=== PATIENT | female | born 1970 | race Caucasian/White ===

== ENCOUNTER 2019-07-09 15:44 | Outpatient (RCR) | payer BC, OTHER, SELFPAY ==
[2019-04-30 18:05] LABS: INR 2.5; Prothrombin Time 26.9 Seconds (11.1-14.7)
[2019-05-29 10:07] LABS: Hemoglobin A1C 5.7 % (<5.7); INR 2.5; Prothrombin Time 26.1 Seconds (11.1-14.7)
[2019-05-29 10:09] LABS: Blood Urea Nitrogen 14 mg/dL (7-17); Calcium 10.1 mg/dL (8.4-10.2); Carbon Dioxide 28 mmol/L (22-30); Chloride 103 mmol/L (98-107); Cholesterol 159 mg/dL (0-200); Estimated Glomerular Filt Rate > 60; Glucose 95 mg/dL (65-105); HDL Direct 43 mg/dL; Potassium 4.4 mmol/L (3.4-5.0); Sodium 142 mmol/L (137-145); Triglycerides 183 mg/dL (<150)
[2019-05-29 10:19] LABS: LDL Cholesterol Direct 70 mg/dL
[2019-07-09 16:47] LABS: INR 2.2; Prothrombin Time 23.9 Seconds (11.1-14.7)
== END 2019-07-29 23:59 | disposition home or self-care (01) ==
LOC: ANHLAB 15:44
PROVIDERS: PCP Internal Medicine; Visit Provider Internal Medicine
DX: Z51.81 Encounter for therapeutic drug level monitoring (principal); I10 Essential (primary) hypertension; E55.9 Vitamin D deficiency, unspecified; E78.5 Hyperlipidemia, unspecified; R73.09 Other abnormal glucose; D68.51 Activated protein C resistance; Z79.899 Other long term (current) drug therapy; Z79.01 Long term (current) use of anticoagulants
CPT/HCPCS: 36415; 80048; 80061; 83036; 85610

== ENCOUNTER 2019-07-26 08:34 | Outpatient (CLI) | payer BC, SELFPAY ==
--- NOTE | ~2019-07-26 | XR_ITS ---
EXAMINATION: XR skull min 4V DATE: 07/26/2019 08:52 INDICATION: Cooper and bump at the top of the head. TECHNIQUE: 4 views of the skull were obtained. COMPARISON: None. FINDINGS: Bone alignment is normal. No fracture. There is no abnormal skull mass. IMPRESSION: 1. Normal skull. Reviewed, dictated and finalized at location A. GY CONSERVATION DIRECTOR IMPRESSION: 1. Normal skull.
== END 2019-07-26 08:35 | disposition home or self-care (01) ==
LOC: ANHIMG 08:38
PROVIDERS: PCP Internal Medicine; Visit Provider Internal Medicine
DX: L90.5 Scar conditions and fibrosis of skin (principal)
CPT/HCPCS: 70260

== ENCOUNTER 2019-10-17 17:06 | Outpatient (RCR) | payer BC, SELFPAY ==
[2019-08-16 17:31] LABS: INR 2.5; Prothrombin Time 26.7 Seconds (11.1-14.7)
[2019-09-17 18:00] LABS: INR 2.7; Prothrombin Time 27.9 Seconds (11.1-14.7)
[2019-09-17 18:05] LABS: Alanine Aminotransferase 41 U/L (4-35); Albumin Level 4.8 g/dL (3.5-5.1); Alkaline Phosphatase 82 U/L (38-126); Aspartate Amino Transferase 35 U/L (14-36); Bilirubin,Total 0.4 mg/dL (0.2-1.3)
[2019-09-17 18:41] LABS: Vitamin D 25 Hydroxy 65.8 ng/mL
[2019-10-17 17:35] LABS: INR 3.3; Prothrombin Time 32.7 Seconds (11.1-14.7)
== END 2019-11-14 23:59 | disposition home or self-care (01) ==
LOC: ANHLAB 17:06
PROVIDERS: PCP Internal Medicine; Visit Provider Internal Medicine
DX: Z51.81 Encounter for therapeutic drug level monitoring (principal); D68.51 Activated protein C resistance; E55.9 Vitamin D deficiency, unspecified; Z79.01 Long term (current) use of anticoagulants; Z79.899 Other long term (current) drug therapy
CPT/HCPCS: 36415; 80076; 82306; 84443; 85610

== ENCOUNTER 2020-01-31 15:04 | Outpatient (RCR) | payer BC, SELFPAY ==
[2019-11-21 17:17] LABS: INR 2.2; Prothrombin Time 23.8 Seconds (11.1-14.7)
[2019-12-21 11:17] LABS: INR 3.3; Prothrombin Time 33.3 Seconds (11.1-14.7)
[2019-12-27 18:13] LABS: INR 2.9; Prothrombin Time 29.6 Seconds (11.1-14.7)
[2020-01-10 17:58] LABS: INR 2.9
[2020-01-31 15:37] LABS: INR 2.5; Prothrombin Time 26.9 Seconds (11.1-14.7)
== END 2020-02-19 23:59 | disposition home or self-care (01) ==
LOC: ANHLAB 15:04
PROVIDERS: PCP Internal Medicine; Visit Provider Internal Medicine
DX: Z51.81 Encounter for therapeutic drug level monitoring (principal); D68.51 Activated protein C resistance; Z79.01 Long term (current) use of anticoagulants
CPT/HCPCS: 36415; 85610

== ENCOUNTER → 2020-03-13 07:40 | Outpatient (CLI) | payer BC, SELFPAY ==
--- NOTE | ~2020-03-13 | US_ITS ---
US abdomen limited DATE: 03/13/2020 08:03 INDICATION: Infarction of spleen. Intermittent sharp left abdominal pain for one month TECHNIQUE: Real-time imaging of the spleen COMPARISON: 04/26/2019 CT abdomen pelvis FINDINGS: No splenic mass lesion is evident. Splenic size is within normal range. IMPRESSION: No significant sonographic abnormality of the spleen Reviewed, dictated and finalized at Location A. Reviewed, dictated and finalized at location B.
== END ==
PROVIDERS: PCP Internal Medicine; Visit Provider Internal Medicine
DX: D73.5 Infarction of spleen (principal)
CPT/HCPCS: 76705

== ENCOUNTER 2020-05-07 08:11 | Outpatient (CLI) | payer BC, SELFPAY ==
--- NOTE | ~2020-05-07 | XR_ITS ---
XR thoracic spine 2V 05/07/2020 08:47 Indication: Back pain Procedure: 3 views thoracic spine Comparison: No prior studies for comparison. Findings: Normal thoracic alignment. Vertebral body heights are maintained. No fracture or traumatic malalignment. No paraspinal soft tissue abnormality. Pedicles intact. There are cholecystectomy clips . No acute osseous abnormality. Impression: 1: No significant abnormality of the thoracic spine. Reviewed, dictated and finalized at location A. CARE MUSIC THERAPIST Impression: 1: No significant abnormality of the thoracic spine.
--- NOTE | ~2020-05-07 | XR_ITS ---
XR cervical spine min 6V 05/07/2020 08:47 Indication: Cervicalgia. Neck pain. No recent trauma. Procedure: 6 view cervical spine including flexion/extension views Comparison: No prior studies for comparison. Findings: Vertebral body and disc heights are preserved. No significant alteration of alignment with flexion/extension. No prevertebral soft tissue swelling. No fracture, subluxation or dislocation. Ja g apices are unremarkable. Odontoid process within normal limits. Impression: 1: No significant abnormality of the cervical spine. Reviewed, dictated and finalized at location A. LOPMENTAL SERVICES WORKER Impression: 1: No significant abnormality of the cervical spine.
== END 2020-05-07 08:12 | disposition home or self-care (01) ==
LOC: ANHIMG 08:19
PROVIDERS: PCP Internal Medicine; Visit Provider Internal Medicine
DX: M54.2 Cervicalgia (principal)
CPT/HCPCS: 72052; 72070

== ENCOUNTER 2020-05-15 16:29 | Outpatient (RCR) | payer BC, SELFPAY ==
[2020-02-21 17:37] LABS: Basophils Percent Auto 0.5 % (0.2-1.2); Eosinophils Absolute Auto 0.2 K/mm3 (0-0.3); Eosinophils Percent Auto 2.9 % (0-4.4); Hemoglobin 13.3 g/dL (12.0-15.0); Immature Granulocyte Absolute 0.01 K/mm3 (0.00-0.031); Immature Granulocyte Percent A 0.2 % (0-0.5); Lymphocytes Absolute Auto 2.49 K/mm3 (0.9-3.2); Lymphocytes Percent Auto 42.3 % (18.3-44.2); Mean Corpuscular HGB Conc 32.4 g/dl (32-36); Mean Corpuscular Hemoglobin 27.6 pg (26-34); Mean Corpuscular Volume 85.1 fl (80-100); Mean Platelet Volume 9.8 fl (7.4-10.4); Monocytes Absolute Auto 0.6 K/mm3 (0.1-0.6); Monocytes Percent Auto 9.9 % (2.6-8.5); Neutrophils Absolute Auto 2.6 K/mm3 (1.3-6.7); Neutrophils Percent Auto 44.2 % (45.5-73.1); Platelet Count Result 266 k/mm3 (150-375); Red Blood Count 4.82 M/mm3 (4.2-5.4); Red Cell Distribution Width 13.5 % (11.5-14.5); White Blood Count 5.9 K/mm3 (4.5-10.0)
[2020-02-21 17:39] LABS: Add Urine Microscopic? NO; Appearance Urine Clear (Clear); Bilirubin Urine Negative (Negative); Blood Urine Negative (Negative); Color Urine Yellow (Yellow); Glucose Urine UA Negative (Negative); Ketones Urine Negative (Negative); Leukocyte Esterase Ur Negative LEU/UL (NEGATIVE); Nitrate Urine Negative (Negative); Protein Urine Negative (Negative); Specific Grav Ur 1.019 (1.001-1.035); Urobilinogen Urine Negative mg/dL (<2.0)
[2020-02-21 17:46] LABS: INR 2.4
[2020-02-21 17:48] LABS: Hemoglobin A1C 5.3 % (<5.7)
[2020-02-21 18:32] LABS: Alanine Aminotransferase 36 U/L (4-35); Albumin Level 4.7 g/dL (3.5-5.1); Alkaline Phosphatase 70 U/L (38-126); Anion Gap 10 mmol/L (8-16); Aspartate Amino Transferase 36 U/L (14-36); Bilirubin,Total 0.5 mg/dL (0.2-1.3); Blood Urea Nitrogen 15 mg/dL (7-17); Calcium 9.7 mg/dL (8.4-10.2); Carbon Dioxide 25 mmol/L (22-30); Chloride 105 mmol/L (98-107); Cholesterol 136 mg/dL (0-200); Estimated Glomerular Filt Rate > 60; Glucose 83 mg/dL (65-105); HDL Direct 45 mg/dL; Potassium 4.2 mmol/L (3.4-5.0); Sodium 140 mmol/L (137-145); Triglycerides 177 mg/dL (<150)
[2020-02-21 18:43] LABS: LDL Cholesterol Direct 53 mg/dL
[2020-02-21 18:48] LABS: Vitamin D 25 Hydroxy 86.4 ng/mL
[2020-03-11 17:44] LABS: INR 2.5; Prothrombin Time 26.3 Seconds (11.1-14.7)
[2020-04-10 17:20] LABS: INR 2.1; Prothrombin Time 22.8 Seconds (11.1-14.7)
[2020-05-15 17:23] LABS: INR 2.2; Prothrombin Time 25.2 Seconds (11.1-14.7)
== END 2020-05-21 23:59 | disposition home or self-care (01) ==
LOC: ANHLAB 16:29
PROVIDERS: PCP Internal Medicine; Visit Provider Internal Medicine
DX: Z51.81 Encounter for therapeutic drug level monitoring (principal); D68.51 Activated protein C resistance; Z79.01 Long term (current) use of anticoagulants
CPT/HCPCS: 36415; 80053; 80061; 81003; 82306; 83036; 84443; 85025; 85610

== ENCOUNTER 2020-06-12 08:29 | Outpatient (CLI) | payer BC, SELFPAY ==
--- NOTE | ~2020-06-12 | MM_ITS ---
EXAMINATION: MM screening [facility] BI w gulshan HISTORY: Screening mammogram TECHNIQUE: Craniocaudal and mediolateral oblique 3-D tomosynthesis images were obtained and synthetic 2-D images were generated. CAD analysis was submitted and interpreted. COMPARISON: 06/11/2019, 06/01/2018, 05/31/2017 BREAST PARENCHYMAL COMPOSITION: There are scattered areas of fibroglandular density. FINDINGS: There is no evidence of suspicious mass, calcification, or architectural distortion to sugg est malignancy in either breast. There has been no suspicious interval change. IMPRESSION: 1. No mammographic evidence of malignancy. 2. Recommend routine screening mammography in one year. BI-RADS Category 1: Negative Reviewed, dictated and finalized at location A. EMIOLOGY INTERNSHIP
== END 2020-06-12 08:30 | disposition home or self-care (01) ==
PROVIDERS: PCP Internal Medicine; Visit Provider Internal Medicine
DX: Z12.31 Encounter for screening mammogram for malignant neoplasm of breast (principal)
CPT/HCPCS: 77063; 77067

== ENCOUNTER 2020-08-19 17:04 | Outpatient (RCR) | payer BC, SELFPAY ==
[2020-06-02 17:54] LABS: INR 2.1; Prothrombin Time 24.2 Seconds (11.1-14.7)
[2020-06-09 15:41] LABS: INR 2.9; Prothrombin Time 30.7 Seconds (11.1-14.7)
[2020-06-19 17:05] LABS: INR 2.4; Prothrombin Time 26.7 Seconds (11.1-14.7)
[2020-07-02 17:16] LABS: INR 2.3; Prothrombin Time 26.1 Seconds (11.1-14.7)
[2020-07-14 17:40] LABS: Basophils Percent Auto 0.4 % (0.2-1.2); Eosinophils Absolute Auto 0.1 K/mm3 (0-0.3); Eosinophils Percent Auto 1.7 % (0-4.4); Hematocrit 42.8 % (37.0-47.0); Hemoglobin 13.8 g/dL (12.0-15.0); Immature Granulocyte Absolute 0.02 K/mm3 (0.00-0.031); Immature Granulocyte Percent A 0.3 % (0-0.5); Lymphocytes Absolute Auto 2.71 K/mm3 (0.9-3.2); Lymphocytes Percent Auto 37.4 % (18.3-44.2); Mean Corpuscular HGB Conc 32.2 g/dl (32-36); Mean Corpuscular Hemoglobin 27.8 pg (26-34); Mean Corpuscular Volume 86.1 fl (80-100); Mean Platelet Volume 9.5 fl (7.4-10.4); Monocytes Absolute Auto 0.4 K/mm3 (0.1-0.6); Monocytes Percent Auto 5.5 % (2.6-8.5); Neutrophils Percent Auto 54.7 % (45.5-73.1); Platelet Count Result 255 k/mm3 (150-375); Red Blood Count 4.97 M/mm3 (4.2-5.4); White Blood Count 7.3 K/mm3 (4.5-10.0)
[2020-07-14 17:51] LABS: INR 2.3; Prothrombin Time 25.5 Seconds (11.1-14.7)
[2020-07-14 17:55] LABS: Alanine Aminotransferase 35 U/L (4-35); Albumin Level 4.8 g/dL (3.5-5.1); Alkaline Phosphatase 74 U/L (38-126); Anion Gap 7 mmol/L (8-16); Aspartate Amino Transferase 32 U/L (14-36); Bilirubin,Total 0.4 mg/dL (0.2-1.3); Blood Urea Nitrogen 15 mg/dL (7-17); Carbon Dioxide 31 mmol/L (22-30); Chloride 104 mmol/L (98-107); Cholesterol 156 mg/dL (0-200); Estimated Glomerular Filt Rate > 60; Glucose 91 mg/dL (65-105); HDL Direct 46 mg/dL; Potassium 4.3 mmol/L (3.4-5.0); Sodium 142 mmol/L (137-145); Triglycerides 210 mg/dL (<150)
[2020-07-14 18:06] LABS: LDL Cholesterol Direct 60 mg/dL
[2020-07-14 18:21] LABS: Hemoglobin A1C 5.4 % (<5.7)
[2020-07-14 18:34] LABS: Add Urine Microscopic? NO; Appearance Urine Clear (Clear); Bilirubin Urine Negative (Negative); Blood Urine Negative (Negative); Color Urine Yellow (Yellow); Glucose Urine UA Negative (Negative); Ketones Urine Negative (Negative); Leukocyte Esterase Ur Negative LEU/UL (NEGATIVE); Nitrate Urine Negative (Negative); Protein Urine Negative (Negative); Specific Grav Ur 1.016 (1.001-1.035); Urobilinogen Urine Negative mg/dL (<2.0)
[2020-07-18 05:08] LABS: Insulin Level Total 11.6 uIU/mL (<=19.6)
[2020-08-12 17:28] LABS: INR 2.2; Prothrombin Time 24.8 Seconds (11.1-14.7)
[2020-08-19 17:36] LABS: INR 2.7; Prothrombin Time 29.1 Seconds (11.1-14.7)
== END 2020-08-31 23:59 | disposition home or self-care (01) ==
LOC: ANHLAB 17:04
PROVIDERS: PCP Internal Medicine; Visit Provider Internal Medicine
DX: Z51.81 Encounter for therapeutic drug level monitoring (principal); D68.51 Activated protein C resistance; I10 Essential (primary) hypertension; Z79.01 Long term (current) use of anticoagulants; Z79.899 Other long term (current) drug therapy
CPT/HCPCS: 36415; 80053; 80061; 81003; 83036; 83525; 84443; 85025; 85610

== ENCOUNTER 2020-11-21 16:10 | Outpatient (RCR) | payer BC, SELFPAY ==
[2020-09-02 17:09] LABS: INR 3.2
[2020-09-16 17:50] LABS: INR 2.5; Prothrombin Time 27.5 Seconds (11.1-14.7)
[2020-10-14 17:43] LABS: INR 2.6; Prothrombin Time 28.5 Seconds (11.1-14.7)
[2020-11-11 18:02] LABS: Add Urine Microscopic? YES; Appearance Urine Clear (Clear); Bilirubin Urine Negative (Negative); Blood Urine 1+ (Negative); Color Urine Straw (Yellow); Glucose Urine UA Negative (Negative); Ketones Urine Negative (Negative); Leukocyte Esterase Ur Negative LEU/UL (Negative); Mucus Urine Rare /lpf; Nitrate Urine Negative (Negative); Protein Urine Negative (Negative); RBC Urine 0-2 /hpf (0-2); Urobilinogen Urine Negative mg/dL (<2.0)
[2020-11-11 18:21] LABS: INR 2.9
[2020-11-21 16:40] LABS: INR 2.6; Prothrombin Time 28.3 Seconds (11.1-14.7)
== END 2020-12-03 23:59 | disposition home or self-care (01) ==
LOC: ANHLAB 16:10
PROVIDERS: PCP Internal Medicine; Visit Provider Internal Medicine
DX: Z51.81 Encounter for therapeutic drug level monitoring (principal); D68.51 Activated protein C resistance; Z79.01 Long term (current) use of anticoagulants
CPT/HCPCS: 36415; 81001; 85610

== ENCOUNTER 2021-02-11 16:55 | Outpatient (CLI) | payer BC, SELFPAY ==
[2021-02-11 17:28] LABS: Basophils Percent Auto 0.5 % (0.2-1.2); Eosinophils Absolute Auto 0.1 K/mm3 (0-0.3); Eosinophils Percent Auto 1.4 % (0-4.4); Hematocrit 42.2 % (37.0-47.0); Hemoglobin 13.6 g/dL (12.0-15.0); Immature Granulocyte Absolute 0.02 K/mm3 (0.00-0.031); Immature Granulocyte Percent A 0.3 % (0-0.5); Lymphocytes Absolute Auto 2.66 K/mm3 (0.9-3.2); Lymphocytes Percent Auto 41.2 % (18.3-44.2); Mean Corpuscular HGB Conc 32.2 g/dl (32-36); Mean Corpuscular Hemoglobin 27.6 pg (26-34); Mean Corpuscular Volume 85.8 fl (80-100); Mean Platelet Volume 9.6 fl (7.4-10.4); Monocytes Absolute Auto 0.5 K/mm3 (0.1-0.6); Monocytes Percent Auto 7.3 % (2.6-8.5); Neutrophils Absolute Auto 3.2 K/mm3 (1.3-6.7); Neutrophils Percent Auto 49.3 % (45.5-73.1); Platelet Count Result 262 k/mm3 (150-375); Red Blood Count 4.92 M/mm3 (4.2-5.4); Red Cell Distribution Width 12.9 % (11.5-14.5); White Blood Count 6.5 K/mm3 (4.5-10.0)
[2021-02-11 17:40] LABS: Alanine Aminotransferase 25 U/L (4-35); Albumin Level 4.7 g/dL (3.5-5.1); Alkaline Phosphatase 63 U/L (38-126); Anion Gap 9 mmol/L (8-16); Aspartate Amino Transferase 24 U/L (14-36); Bilirubin,Total 0.5 mg/dL (0.2-1.3); Blood Urea Nitrogen 15 mg/dL (7-17); Calcium 9.8 mg/dL (8.4-10.2); Carbon Dioxide 28 mmol/L (22-30); Chloride 104 mmol/L (98-107); Cholesterol 130 mg/dL (0-200); Estimated Glomerular Filt Rate > 60; Glucose 87 mg/dL (65-110); HDL Direct 34 mg/dL; Potassium 4.2 mmol/L (3.4-5.0); Sodium 141 mmol/L (137-145); Triglycerides 269 mg/dL (<150)
[2021-02-11 17:52] LABS: LDL Cholesterol Direct 40 mg/dL
[2021-02-11 19:51] LABS: Hemoglobin A1C 5.5 % (<5.7)
[2021-02-14 04:33] LABS: Insulin Level Total 12.9 uIU/mL (<=19.6)
[2021-02-14 22:55] LABS: Vitamin D 1,25 (OH)2 Total 62 pg/mL (18-72); Vitamin D2 1,25 (OH)2 <8 pg/mL; Vitamin D3 1,25 (OH)2 62 pg/mL
== END 2021-02-11 16:56 | disposition home or self-care (01) ==
LOC: ANHLAB 16:57
PROVIDERS: PCP Internal Medicine; Visit Provider Internal Medicine
DX: E55.9 Vitamin D deficiency, unspecified (principal); I10 Essential (primary) hypertension; R79.89 Other specified abnormal findings of blood chemistry; E78.2 Mixed hyperlipidemia; Z79.899 Other long term (current) drug therapy
CPT/HCPCS: 36415; 80053; 80061; 82652; 83036; 83090; 83525; 85025

== ENCOUNTER 2021-02-25 08:20 | Outpatient (RCR) | payer BC, SELFPAY ==
[2020-12-04 17:45] LABS: INR 3.1; Prothrombin Time 32.5 Seconds (11.1-14.7)
[2020-12-16 18:08] LABS: INR 2.5; Prothrombin Time 26.7 Seconds (11.1-14.7)
[2021-01-13 17:34] LABS: INR 2.6; Prothrombin Time 26.9 Seconds (11.1-14.7)
[2021-02-11 17:40] LABS: INR 3.3; Prothrombin Time 32.2 Seconds (11.1-14.7)
[2021-02-25 08:53] LABS: INR 2.3; Prothrombin Time 24.6 Seconds (11.1-14.7)
== END 2021-03-04 23:59 | disposition home or self-care (01) ==
LOC: ANHLAB 08:20
PROVIDERS: PCP Internal Medicine; Visit Provider Internal Medicine
DX: Z51.81 Encounter for therapeutic drug level monitoring (principal); D68.51 Activated protein C resistance; Z79.01 Long term (current) use of anticoagulants
CPT/HCPCS: 36415; 85610

== ENCOUNTER 2021-05-28 15:29 | Outpatient (RCR) | payer BC, SELFPAY ==
[2021-03-05 18:15] LABS: INR 2.1; Prothrombin Time 22.7 Seconds (11.1-14.7)
[2021-03-16 18:05] LABS: INR 3.2; Prothrombin Time 32.1 Seconds (11.1-14.7)
[2021-03-31 17:30] LABS: INR 2.6; Prothrombin Time 27.3 Seconds (11.1-14.7)
[2021-05-04 11:40] LABS: INR 2.4; Prothrombin Time 25.9 Seconds (11.1-14.7)
[2021-05-28 15:56] LABS: INR 3.4; Prothrombin Time 33.1 Seconds (11.1-14.7)
== END 2021-06-03 23:59 | disposition home or self-care (01) ==
LOC: ANHLAB 15:29
PROVIDERS: PCP Internal Medicine; Visit Provider Internal Medicine
DX: Z51.81 Encounter for therapeutic drug level monitoring (principal); I74.9 Embolism and thrombosis of unspecified artery; D68.51 Activated protein C resistance; Z79.01 Long term (current) use of anticoagulants
CPT/HCPCS: 36415; 85610

== ENCOUNTER 2021-06-02 08:57 | Outpatient (CLI) | payer BC, SELFPAY ==
--- NOTE | ~2021-06-02 | US_ITS ---
EXAMINATION: US carotid duplex BI DATE: 06/02/2021 09:55 INDICATION: Skin anesthesia. Numbness to right side of face. TECHNIQUE: Grayscale, color Doppler, and pulsed Doppler images of the cervical carotid arteries were obtained. The degree of vessel stenosis is placed in one of the following categories: normal, <50%, 5 0-69%, >=70% but less than near-occlusion, near-occlusion, or total occlusion. Note that percent sten osis relative to normal distal artery lumen diameter is indirectly measured from velocity measurement s as described by Emil, et al. Radiology 2003; [id number]. Notes: Normal: Peak systolic velocity <125 centimeters/sec and no plaque <50%. Peak systolic velocity <125 ( EDV <40; ICA/CCA PSV ratio <2.0; used these factors only a tandem lesions or low cardiac output or co ntralateral disease) 50-69 %: PSV 125-230 (EDV 40-100; ratio 2-4) >= 70% but less than near occlusion: PSV greater than 230 (EDV > 100; ratio> 4.0) Near Occlusion: PSV that is variable; markedly narrowed lumen Occlusion: Absent flow on color/spectral Doppler and no lumen on melendez scale. COMPARISON: None. FINDINGS: RIGHT: The right common carotid artery (CCA) peak systolic velocity (PSV) is 103 cm/s. The right internal ca rotid artery (ICA) PSV is 93 cm/s. The right ICA end-diastolic velocity (EDV) is 36 cm/s. The right I CA/CCA PSV ratio is 0.9. The external carotid artery (ECA) PSV is 87 cm/s. There is antegrade flow in the right vertebral artery. LEFT: The left CCA PSV is 78 cm/s. The left ICA PSV is 107 cm/s. The left ICA EDV is 56 cm/s. The left ICA/ CCA PSV ratio is 1.4. The ECA PSV is 100 cm/s. There is antegrade flow in the left vertebral artery. IMPRESSION: 1. Less than 50% stenosis in the right internal carotid artery by sonographic criteria. 2. Less than 50% stenosis in the left internal carotid artery by sonographic criteria. Reviewed, dictated and finalized at location A. UTIVE SEARCH CONSULTANT IMPRESSION: 1. Less than 50% stenosis in the right internal carotid artery by sonographic c demetris. 2. Less than 50% stenosis in the left internal carotid artery by sonographic cr sofia.
--- NOTE | ~2021-06-02 | CT_ITS ---
EXAMINATION: CT brain wo/w con DATE: 06/02/2021 10:05 INDICATION: Right facial numbness for 3 days TECHNIQUE: Computed tomography (CT) of the head was performed without and subsequently with 100 cc Om nipaque 350 intravenous contrast. The mA was adjusted according to patient size. Iterative reconstruc tion technique was employed. Exam dose: 1059.33 mGy-cm total exam DLP. COMPARISON: 10/01/2014 MR brain 02/15/2012 MR brain FINDINGS: No intracranial mass lesion or hemorrhage or cerebrovascular accident. No midline shift or mass effect. Normal ventricular size. No subdural or epidural hematoma. Included paranasal sinuses and mastoid air cells are normally developed and aerated. No fracture or b one destruction of the cranial vault. IMPRESSION: Negative Reviewed, dictated and finalized at Location A. Reviewed, dictated and finalized at location B. POSTER IMPRESSION: Negative
[2021-06-02 09:34] LABS: Basophils Percent Auto 0.5 % (0.2-1.2); Eosinophils Absolute Auto 0.1 K/mm3 (0-0.3); Eosinophils Percent Auto 1.6 % (0-4.4); Hematocrit 46.6 % (37.0-47.0); Immature Granulocyte Absolute 0.02 K/mm3 (0.00-0.031); Immature Granulocyte Percent A 0.3 % (0-0.5); Lymphocytes Absolute Auto 2.04 K/mm3 (0.9-3.2); Lymphocytes Percent Auto 35.5 % (18.3-44.2); Mean Corpuscular HGB Conc 32.2 g/dl (32-36); Mean Corpuscular Hemoglobin 27.9 pg (26-34); Mean Corpuscular Volume 86.8 fl (80-100); Mean Platelet Volume 9.8 fl (7.4-10.4); Monocytes Absolute Auto 0.4 K/mm3 (0.1-0.6); Monocytes Percent Auto 6.1 % (2.6-8.5); Neutrophils Absolute Auto 3.2 K/mm3 (1.3-6.7); Platelet Count Result 273 k/mm3 (150-375); Red Blood Count 5.37 M/mm3 (4.2-5.4); Red Cell Distribution Width 12.9 % (11.5-14.5); White Blood Count 5.8 K/mm3 (4.5-10.0)
[2021-06-02 09:58] LABS: Anion Gap 10 mmol/L (8-16); Blood Urea Nitrogen 15 mg/dL (7-17); CRP < 0.5 mg/dL (<1.0); Calcium 10.4 mg/dL (8.4-10.2); Carbon Dioxide 29 mmol/L (22-30); Chloride 99 mmol/L (98-107); Estimated Glomerular Filt Rate > 60; Glucose 102 mg/dL (65-110); Potassium 4.5 mmol/L (3.4-5.0); Sodium 138 mmol/L (137-145)
[2021-06-02 09:59] LABS: Estimated Glomerular Filt Rate > 60
[2021-06-02 10:48] LABS: INR 2.7; Prothrombin Time 28.2 Seconds (11.1-14.7)
[2021-06-02 11:04] LABS: Erythrocyte Sedimentation Rate 9 mm/hr (0-20)
== END 2021-06-02 08:58 | disposition home or self-care (01) ==
PROVIDERS: PCP Internal Medicine; Visit Provider Internal Medicine
DX: D68.51 Activated protein C resistance (principal); R20.0 Anesthesia of skin; Z79.01 Long term (current) use of anticoagulants; I65.23 Occlusion and stenosis of bilateral carotid arteries
CPT/HCPCS: 36415; 70470; 80048; 85025; 85610; 85652; 86140; 93880; Q9967

== ENCOUNTER 2021-06-10 06:45 | Outpatient (CLI) | payer BC, SELFPAY ==
--- NOTE | ~2021-06-10 | MR_ITS ---
EXAMINATION: MR brain/brain stem wo/w con DATE: 06/10/2021 07:51 INDICATION: Anesthesia skin. TECHNIQUE: Magnetic resonance imaging (MRI) of the brain and brainstem was performed without and with 15 mL MultiHance intravenous contrast. Sequences included sagittal and axial T1-weighted FSE, axial diffusion-weighted FS EPI, axial T2*-weighted GRE, axial T2-weighted FLAIR Propeller, and axial T2-we ighted Propeller. Postcontrast sequences included axial, sagittal, and coronal T1-weighted FSE. Appar ent diffusion coefficient (ADC) maps were created. COMPARISON: Brain MRI 10/01/2014, head CT 06/02/2021 FINDINGS: There are scattered areas of nonspecific increased T2-weighted signal intensity in the cere bral white matter, which is within normal limits for the patient's age. There is no intracranial hemo rrhage, acute infarction, or abnormal intracranial mass lesion. The ventricles are normal in size. Th e paranasal sinuses are clear. The orbits are normal. The mastoid air cells are normal. IMPRESSION: 1. Normal aging brain. Reviewed, dictated and finalized at location B. DECORATOR IMPRESSION: 1. Normal aging brain.
== END 2021-06-10 06:46 | disposition home or self-care (01) ==
LOC: ANHIMG 06:46
PROVIDERS: PCP Internal Medicine; Visit Provider Internal Medicine
DX: R20.0 Anesthesia of skin (principal); D68.51 Activated protein C resistance; Z79.01 Long term (current) use of anticoagulants
CPT/HCPCS: 70553; A9577

== ENCOUNTER 2021-08-04 16:42 | Outpatient (CLI) | payer BC, SELFPAY ==
--- NOTE | ~2021-08-04 | MM_ITS ---
EXAMINATION: MM screening [facility] BI w gulshan HISTORY: Screening mammogram TECHNIQUE: Craniocaudal and mediolateral oblique 3-D tomosynthesis images were obtained and synthetic 2-D images were generated. CAD analysis was submitted and interpreted. COMPARISON: 06/12/2020, 06/11/2019, 06/01/2018 bilateral screening mammogram examinations BREAST PARENCHYMAL COMPOSITION: There are scattered areas of fibroglandular density. FINDINGS: There is no evidence of suspicious mass, calcification, or architectural distortion to sugg est malignancy in either breast. There has been no suspicious interval change. IMPRESSION: 1. No mammographic evidence of malignancy. 2. Recommend routine screening mammography in one year. BI-RADS Category 1: Negative Reviewed, dictated and finalized at location A. RVENTIONAL SALE CONSULTANT
== END 2021-08-04 16:43 | disposition home or self-care (01) ==
LOC: ANHIMG 16:46
PROVIDERS: PCP Internal Medicine; Visit Provider Internal Medicine
DX: Z12.31 Encounter for screening mammogram for malignant neoplasm of breast (principal)
CPT/HCPCS: 77063; 77067

== ENCOUNTER 2021-09-17 12:57 | Emergency (ER) | payer BC, SELFPAY ==
[2021-09-17 13:10] VITALS: BP 146/80; PULSE 100; RESP 18; TEMP 36.5; O2SAT 99
--- NOTE | 2021-09-17 14:32 | ED.SKABFB ---
HPI - Skin/Abscess/Foreign Bdy General Chief complaint: Skin/Abscess/Foreign Body <Seema Vasquez PA-C - Last Filed: 09/17/21 17:29> Stated complaint: philip/skin bumps <Seema Vasquez PA-C - Last Filed: 09/17/21 17:29> Time Seen by Provider: 09/17/21 13:15 <Seema Vasquez PA-C - Last Filed: 09/17/21 17:29> History of Present Illness HPI narrative: Patient is a 50-year-old female with a history of pulmonary embolism for which she takes warfarin, who presents for 3 days of a rash around her left scalp area. The rash is nonpainful and not itchy, and has not increased in size to her knowledge. Denies new soaps, detergents, bug bites, or medications. She states she was camping last week in the [facility] but denies known tick exposure. Additionally, her dog is being treated for a fungal infection, and she recently clipped his hair and did not wash her hands afterwards. Additionally reporting discomfort behind her left ear. She tried putting coconut oil in her left ear for the pain without relief. She denies any rash on her eye, nose, blurry vision, nausea, vomiting. <Seema Vasquez PA-C - Last Filed: 09/17/21 17:29> Related Data Home medications: Home Medications Medication Instructions Recorded Confirmed cholecalciferol (vitamin D3) 125 5,000 unit PO DAILY 07/09/19 06/03/21 mcg (5,000 unit) capsule multivitamin 1 tablet PO DAILY 07/17/20 06/03/21 fish oil-dha-epa 1,200 mg-144 cap PO TID cap 03/11/21 06/03/21 mg-216 mg capsule <MARILEE Dawn Last Filed: 09/17/21 17:29> Allergies/Adverse reactions: Allergies Allergy/AdvReac Type Severity Reaction Status Date / Time papaya Allergy Severe RASH Verified 09/17/21 13:12 Sulfa (Sulfonamide Allergy Unknown Unknown Verified 09/17/21 13:12 Antibiotics) sulfanilamide Allergy Unknown Unknown Verified 09/17/21 13:12 Prieto Allergy Severe RASH Uncoded 09/17/21 13:12 <Seema Vasquez PA-C - Last Filed: 09/17/21 17:29> Review of Systems Review of Systems: Gen: Denies fevers or chills Eyes: Denies eye pain or visual change ENT: Reports pain behind left ear. Denies congestion Respiratory: Denies shortness of breath or cough CV: Denies chest pain or palpitations GI: Denies abdominal pain nausea, emesis or diarrhea denies burning, urgency, frequency or hematuria Musculoskeletal: Denies back pain or muscle pain Neuro: Denies numbness, tingling, weakness or focal weakness Skin: Reports rash Except as documented, all other systems reviewed and negative <Seema Vasquez PA-C - Last Filed: 09/17/21 17:29> All systems reviewed & are unremarkable except as noted in HPI and below <Seema Vasquez PA-C - Last Filed: 09/17/21 17:29> [facility] Past Medical History Medical History: Medical History Abnormal finding of blood chemistry Benign essential hypertension BMI 30.0-30.9,adult BMI 33.0-33.9,adult BMI 34.0-34.9,adult Cellulitis Encounter for preventive health examination Encounter for routine adult health examination without abnormal findings Follow up GERD (gastroesophageal reflux disease) Head disfigurement Hormone replacement therapy (HRT) Hyperlipidemia FDC current use of anticoagulant Neck Pain On nurse intern drug therapy Splenic infarct Umbilical discharge Vitamin D deficiency <Seema Vasquez PA-C - Last Filed: 09/17/21 17:29> Family History Family History: Family History Father Hypertension Family history of macular degeneration Sibling Family history of elevated blood lipids Mother Family history of diabetes mellitus in first degree relative Diabetes mellitus <Seema Vasquez PA-C - Last Filed: 09/17/21 17:29> Social History Social History: Social History A
== END 2021-09-17 15:06 | disposition home or self-care (01) ==
PROVIDERS: Emergency Provider Emergency Medicine; PCP Internal Medicine
DX: L30.9 Dermatitis, unspecified (principal); I10 Essential (primary) hypertension; K21.9 Gastro-esophageal reflux disease without esophagitis; E78.5 Hyperlipidemia, unspecified; E55.9 Vitamin D deficiency, unspecified; Z86.711 Personal history of pulmonary embolism; Z79.01 Long term (current) use of anticoagulants
CPT/HCPCS: 99283

== ENCOUNTER 2021-09-17 15:13 | Outpatient (RCR) | payer BC, SELFPAY ==
[2021-08-03 15:33] LABS: INR 2.6; Prothrombin Time 26.8 Seconds (11.1-14.7)
[2021-08-03 15:37] LABS: Alanine Aminotransferase 22 U/L (4-35); Albumin Level 4.7 g/dL (3.5-5.1); Alkaline Phosphatase 79 U/L (38-126); Aspartate Amino Transferase 28 U/L (14-36); Bilirubin,Total 0.5 mg/dL (0.2-1.3); Cholesterol 245 mg/dL (0-200); HDL Direct 40 mg/dL; Triglycerides 276 mg/dL (<150)
[2021-08-03 15:47] LABS: LDL Cholesterol Direct 102 mg/dL
[2021-09-17 16:13] LABS: Prothrombin Time 22.3 Seconds (11.1-14.7)
== END 2021-11-01 23:59 | disposition home or self-care (01) ==
LOC: ANHLAB 15:13
PROVIDERS: PCP Internal Medicine; Visit Provider Internal Medicine
DX: I74.9 Embolism and thrombosis of unspecified artery (principal); D68.51 Activated protein C resistance
CPT/HCPCS: 36415; 80061; 80076; 85610

== ENCOUNTER 2021-09-17 15:32 | Outpatient (CLI) | payer BC, SELFPAY ==
[2021-09-17 16:06] LABS: Basophils Percent Auto 0.7 % (0.2-1.2); Eosinophils Absolute Auto 0.1 K/mm3 (0-0.3); Eosinophils Percent Auto 0.8 % (0-4.4); Hematocrit 41.8 % (37.0-47.0); Hemoglobin 14.1 g/dL (12.0-15.0); Immature Granulocyte Absolute 0.02 K/mm3 (0.00-0.031); Immature Granulocyte Percent A 0.3 % (0-0.5); Lymphocytes Absolute Auto 2.13 K/mm3 (0.9-3.2); Mean Corpuscular HGB Conc 33.7 g/dl (32-36); Mean Corpuscular Hemoglobin 28.6 pg (26-34); Mean Corpuscular Volume 84.8 fl (80-100); Mean Platelet Volume 9.8 fl (7.4-10.4); Monocytes Absolute Auto 0.3 K/mm3 (0.1-0.6); Monocytes Percent Auto 5.6 % (2.6-8.5); Neutrophils Absolute Auto 3.5 K/mm3 (1.3-6.7); Neutrophils Percent Auto 57.6 % (45.5-73.1); Platelet Count Result 275 k/mm3 (150-375); Red Blood Count 4.93 M/mm3 (4.2-5.4); Red Cell Distribution Width 12.8 % (11.5-14.5); White Blood Count 6.1 K/mm3 (4.5-10.0)
[2021-09-17 16:31] LABS: Add Urine Microscopic? NO; Appearance Urine Clear (Clear); Bilirubin Urine Negative (Negative); Blood Urine Negative (Negative); Color Urine Straw (Yellow); Glucose Urine UA Negative (Negative); Ketones Urine Negative (Negative); Leukocyte Esterase Ur Negative LEU/UL (Negative); Nitrate Urine Negative (Negative); Protein Urine Negative (Negative); Specific Grav Ur 1.013 (1.001-1.035); Urobilinogen Urine Negative mg/dL (<2.0)
[2021-09-17 16:33] LABS: Alanine Aminotransferase 28 U/L (4-35); Albumin Level 5.1 g/dL (3.5-5.1); Alkaline Phosphatase 76 U/L (38-126); Anion Gap 8 mmol/L (8-16); Aspartate Amino Transferase 32 U/L (14-36); Bilirubin,Total 0.4 mg/dL (0.2-1.3); Blood Urea Nitrogen 14 mg/dL (7-17); Carbon Dioxide 29 mmol/L (22-30); Chloride 104 mmol/L (98-107); Cholesterol 157 mg/dL (0-200); Estimated Glomerular Filt Rate > 60; Glucose 94 mg/dL (65-110); HDL Direct 42 mg/dL; Potassium 4.2 mmol/L (3.4-5.0); Sodium 141 mmol/L (137-145); Triglycerides 239 mg/dL (<150)
[2021-09-17 16:44] LABS: LDL Cholesterol Direct 56 mg/dL
[2021-09-17 17:03] LABS: Thyroid Stimulating Hormone 0.914 uIU/mL (0.465-4.680)
[2021-09-17 17:18] LABS: Free T4 Free Thyroxine 1.06 ng/mL (0.78-2.19)
[2021-09-17 17:24] LABS: Hemoglobin A1C 5.3 % (<5.7)
[2021-09-20 03:11] LABS: Insulin Level Total 11.2 uIU/mL (<=19.6)
== END 2021-09-17 15:33 | disposition home or self-care (01) ==
LOC: ANHLAB 15:32
PROVIDERS: PCP Internal Medicine; Visit Provider Internal Medicine
DX: I10 Essential (primary) hypertension (principal); Z79.899 Other long term (current) drug therapy; R39.9 Unspecified symptoms and signs involving the genitourinary system
CPT/HCPCS: 36415; 80053; 80061; 81003; 83036; 83525; 84439; 84443; 85025

== ENCOUNTER 2021-12-28 01:45 | Day surgery (SDC) | payer BC, SELFPAY ==
[2021-12-16 14:24] VITALS: BMI 30.2
--- NOTE | 2021-12-25 13:39 | PM.HPGS ---
History of Present Illness History of Present Illness Consent: Risks, benefits, and alternatives have been discussed and questions answered. Patient agrees to proceed with procedure. Chief complaint: neoplasm screening Narrative: Tia Mcgrath is a 50 year old female referred for colon cancer screening. Review of Systems Review of Systems: All systems reviewed & are unremarkable except as noted in HPI and below PMFSH Past Medical History Medical History Abnormal finding of blood chemistry Benign essential hypertension BMI 30.0-30.9,adult BMI 33.0-33.9,adult BMI 34.0-34.9,adult Cellulitis Decreased hearing Encounter for preventive health examination Encounter for routine adult health examination without abnormal findings Follow up GERD (gastroesophageal reflux disease) Head disfigurement Hormone replacement therapy (HRT) Hyperlipidemia halfway current use of anticoagulant Neck Pain On [facility] drug therapy Screening for malignant neoplasm of colon Shingles Splenic infarct Umbilical discharge Vitamin D deficiency Family History Family History Father Hypertension Family history of macular degeneration Lung cancer Diabetes mellitus Sibling Family history of elevated blood lipids Mother Family history of diabetes mellitus in first degree relative Diabetes mellitus Aortic stenosis Social History Social History Smoking status: Never smoker Alcohol intake: never Substance use: unknown Substance use type: does not use Living arrangements: with family Spiritual care concerns: No Meds Home Medications and Allergies Home Medications Medication Instructions Recorded Confirmed Type cholecalciferol (vitamin D3) 125 5,000 unit PO DAILY 07/09/19 12/16/21 History mcg (5,000 unit) capsule multivitamin 1 tablet PO DAILY 07/17/20 12/16/21 History fish oil-dha-epa 1,200 mg-144 3 cap PO DAILY 03/11/21 12/16/21 History mg-216 mg capsule amlodipine 2.5 mg tablet 2.5 mg PO DAILY 10/07/21 12/16/21 History enoxaparin 80 mg/0.8 mL 80 mg (0.8 mL) subcut Q12H #20 ea 12/15/21 12/28/21 Rx subcutaneous syringe (Lovenox) omeprazole 40 mg capsule,delayed 40 mg PO DAILY PRN Indigestion 12/16/21 12/16/21 History release simvastatin 20 mg tablet 20 mg PO DAILY 12/16/21 12/16/21 History warfarin 5 mg tablet 7 mg PO DAILY 12/16/21 12/16/21 History warfarin 1 mg tablet 1 mg PO DAILY #90 tabs 12/17/21 12/28/21 Rx Allergies Allergy/AdvReac Type Severity Reaction Status Date / Time papaya Allergy Severe Swelling Verified 12/28/21 06:49 of Lip/Tongue/Throat Sulfa (Sulfonamide Allergy Unknown Unknown Verified 12/28/21 06:49 Antibiotics) sulfanilamide Allergy Unknown Unknown Verified 12/28/21 06:49 guava Allergy Swelling Verified 12/28/21 06:49 of Lip/Tongue/Throat Rudd Allergy Severe Swelling Uncoded 12/28/21 06:49 of Lip/Tongue/Throat Exam Resp: Auscultation: clear to auscultation bilaterally Cardio: Rate: regular rate Rhythm: regular rhythm GI: GI Palp: Yes Soft to palpation and No Tenderness to palpation present (GI) Assessment and Plan Assessment and plan (1) Screening for malignant neoplasm of colon: Code(s): Z12.11 - Encounter for screening for malignant neoplasm of colon Status: Acute Assessment and Plan: Colonoscopy with possible biopsy or polypectomy or cautery or injection of substances.
[2021-12-28 06:51] VITALS: BP 136/84; PULSE 101; RESP 20; TEMP 36.5; O2SAT 98; BMI 29.2
[2021-12-28] MEDS: LACTATED RINGERS 1,000 ML 150 ML IV CONT (06:54)
--- NOTE | 2021-12-28 07:35 | WPDANESEPPF ---
Anes - Initial Pre Proc Eval Procedure: Operation Date: 12/28/21 08:00 Proposed Procedures p Screening Colonoscopy - Shady Ortega MD Date/Time: 12/28/21 07:35 Surgeon: Shady Ortega MD Pre Op Diagnosis: neoplasm screening Patient Data Age: 50 Gender: F Height: 1.63 m Weight: 77.4 kg Last Vital Signs Temp 97.7 F 12/28/21 06:51 Pulse 101 H 12/28/21 06:51 Resp 20 12/28/21 06:51 BP 136/84 12/28/21 06:51 Pulse Ox 98 12/28/21 06:51 O2 Del Method Room Air 12/28/21 06:51 Allergies Allergy/AdvReac Type Severity Reaction Status Date / Time papaya Allergy Severe Swelling Verified 12/28/21 06:49 of Lip/Tongue/Throat Sulfa (Sulfonamide Allergy Unknown Unknown Verified 12/28/21 06:49 Antibiotics) sulfanilamide Allergy Unknown Unknown Verified 12/28/21 06:49 guava Allergy Swelling Verified 12/28/21 06:49 of Lip/Tongue/Throat Prieto Allergy Severe Swelling Uncoded 12/28/21 06:49 of Lip/Tongue/Throat Home Medications Medication Instructions Recorded Confirmed Type cholecalciferol (vitamin D3) 125 5,000 unit PO DAILY 07/09/19 12/16/21 History mcg (5,000 unit) capsule multivitamin 1 tablet PO DAILY 07/17/20 12/16/21 History fish oil-dha-epa 1,200 mg-144 3 cap PO DAILY 03/11/21 12/16/21 History mg-216 mg capsule amlodipine 2.5 mg tablet 2.5 mg PO DAILY 10/07/21 12/16/21 History enoxaparin 80 mg/0.8 mL 80 mg (0.8 mL) subcut Q12H #20 ea 12/15/21 12/28/21 Rx subcutaneous syringe (Lovenox) omeprazole 40 mg capsule,delayed 40 mg PO DAILY PRN Indigestion 12/16/21 12/16/21 History release simvastatin 20 mg tablet 20 mg PO DAILY 12/16/21 12/16/21 History warfarin 5 mg tablet 7 mg PO DAILY 12/16/21 12/16/21 History warfarin 1 mg tablet 1 mg PO DAILY #90 tabs 12/17/21 12/28/21 Rx Patient hx anesthesia problems: none Family hx anesthesia problems: none Results Review: All pre-operative results and documents have been reviewed as part of the pre-operative evaluation. [facility] Past Medical History Medical History Abnormal finding of blood chemistry Benign essential hypertension BMI 30.0-30.9,adult BMI 33.0-33.9,adult BMI 34.0-34.9,adult Cellulitis Decreased hearing Encounter for preventive health examination Encounter for routine adult health examination without abnormal findings Follow up GERD (gastroesophageal reflux disease) Head disfigurement Hormone replacement therapy (HRT) Hyperlipidemia retirement current use of anticoagulant Neck Pain On half-way drug therapy Screening for malignant neoplasm of colon Shingles Splenic infarct Umbilical discharge Vitamin D deficiency Family History Family History Father Hypertension Family history of macular degeneration Lung cancer Diabetes mellitus Sibling Family history of elevated blood lipids Mother Family history of diabetes mellitus in first degree relative Diabetes mellitus Aortic stenosis Social History Social History Smoking status: Never smoker Alcohol intake: never Substance use: unknown Substance use type: does not use Living arrangements: with family Spiritual care concerns: No Anes - Eval Final PreProcedure Day of Procedure 12/28/21 07:35 Patient weight: overweight Heart: regular rate and rhythm Lungs: clear to auscultation Airway: Mallampati scale class II Neurological: alert and oriented Last oral intake: >/= 8 hours ASA classification: II Emergent: no Anesthetic plan: proceed Anesthesia type and monitoring: general GIVS and standard monitoring Results Review: All pre-operative results and documents have been reviewed as part of the pre-operative evaluation. Informed Consent: The patient's anesthetic plan and its attendant risks and benefits were discussed with the patient/famil
[2021-12-28 08:14] VITALS: BP 103/70; PULSE 82; RESP 21; O2SAT 97
[2021-12-28 08:24] VITALS: BP 119/82; PULSE 81; RESP 17; O2SAT 98
[2021-12-28 08:34] VITALS: BP 123/82; PULSE 75; RESP 20; O2SAT 98
== END 2021-12-28 08:40 | disposition home or self-care (01) ==
PROVIDERS: PCP Internal Medicine; Visit Provider Internal Medicine Gastroenterology
PROC: 0DJD8ZZ Inspection of Lower Intestinal Tract, Via Natural or Artificial Opening Endoscopic (ICD-10-PCS; CPT 45378; principal; 2021-12-28 08:00)
DX: Z12.11 Encounter for screening for malignant neoplasm of colon (principal); Z79.01 Long term (current) use of anticoagulants; E55.9 Vitamin D deficiency, unspecified; K21.9 Gastro-esophageal reflux disease without esophagitis; E78.5 Hyperlipidemia, unspecified
CPT/HCPCS: 45378; J2704; J7120

== ENCOUNTER 2022-02-23 16:36 | Outpatient (CLI) | payer BC, SELFPAY ==
[2022-02-23 16:52] LABS: Basophils Absolute Auto 0.1 K/mm3 (0.0-0.1); Basophils Percent Auto 0.8 % (0.2-1.2); Eosinophils Absolute Auto 0.1 K/mm3 (0-0.3); Eosinophils Percent Auto 1.7 % (0-4.4); Hematocrit 43.2 % (37.0-47.0); Hemoglobin 14.2 g/dL (12.0-15.0); Immature Granulocyte Absolute 0.02 K/mm3 (0.00-0.031); Immature Granulocyte Percent A 0.3 % (0-0.5); Lymphocytes Absolute Auto 2.45 K/mm3 (0.9-3.2); Lymphocytes Percent Auto 38.3 % (18.3-44.2); Mean Corpuscular HGB Conc 32.9 g/dl (32-36); Mean Corpuscular Hemoglobin 27.9 pg (26-34); Mean Corpuscular Volume 84.9 fl (80-100); Mean Platelet Volume 9.5 fl (7.4-10.4); Monocytes Absolute Auto 0.5 K/mm3 (0.1-0.6); Monocytes Percent Auto 8.1 % (2.6-8.5); Neutrophils Absolute Auto 3.2 K/mm3 (1.3-6.7); Neutrophils Percent Auto 50.8 % (45.5-73.1); Platelet Count Result 262 k/mm3 (150-375); Red Blood Count 5.09 M/mm3 (4.2-5.4); Red Cell Distribution Width 12.9 % (11.5-14.5); White Blood Count 6.4 K/mm3 (4.5-10.0)
[2022-02-23 17:02] LABS: Alanine Aminotransferase 25 U/L (6-35); Alkaline Phosphatase 61 U/L (38-126); Anion Gap 11 mmol/L (8-16); Aspartate Amino Transferase 25 U/L (14-36); Bilirubin,Total 0.4 mg/dL (0.2-1.3); Blood Urea Nitrogen 16 mg/dL (7-17); Calcium 10.1 mg/dL (8.4-10.2); Carbon Dioxide 26 mmol/L (22-30); Chloride 103 mmol/L (98-107); Cholesterol 164 mg/dL (0-200); Estimated Glomerular Filt Rate > 60; Glucose 102 mg/dL (65-110); HDL Direct 47 mg/dL; Potassium 4.2 mmol/L (3.4-5.0); Sodium 140 mmol/L (137-145); Triglycerides 177 mg/dL (<150)
[2022-02-23 17:13] LABS: LDL Cholesterol Direct 62 mg/dL
[2022-02-23 17:34] LABS: Vitamin D 25 Hydroxy 94.6 ng/mL
[2022-02-23 19:30] LABS: Hemoglobin A1C 5.5 % (<5.7)
== END 2022-02-23 16:37 | disposition home or self-care (01) ==
LOC: ANHLAB 16:37
PROVIDERS: PCP Internal Medicine; Visit Provider Internal Medicine
DX: Z13.1 Encounter for screening for diabetes mellitus (principal); Z79.899 Other long term (current) drug therapy; I10 Essential (primary) hypertension; E78.2 Mixed hyperlipidemia; E55.9 Vitamin D deficiency, unspecified
CPT/HCPCS: 36415; 80053; 80061; 82306; 83036; 85025

== ENCOUNTER 2022-07-23 14:21 | Outpatient (CLI) | payer BC, SELFPAY ==
[2022-07-23 15:20] LABS: Appearance Urine Clear (Clear); Bilirubin Urine Negative (Negative); Blood Urine Trace-intact (Negative); Color Urine Yellow (Yellow); Glucose Urine UA Negative (Negative); Ketones Urine Negative (Negative); Leukocyte Esterase Ur Negative LEU/UL (Negative); Nitrate Urine Negative (Negative); Protein Urine Negative (Negative); Urobilinogen Urine 0.2 mg/dL (<2.0); pH Urine 6.5 (5.0-9.0)
[2022-07-23 15:21] LABS: Basophils Percent Auto 0.4 % (0.2-1.2); Eosinophils Absolute Auto 0.1 K/mm3 (0-0.3); Eosinophils Percent Auto 1.7 % (0-4.4); Hematocrit 44.5 % (37.0-47.0); Hemoglobin 14.8 g/dL (12.0-15.0); Immature Granulocyte Absolute 0.02 K/mm3 (0.00-0.031); Immature Granulocyte Percent A 0.3 % (0-0.5); Lymphocytes Absolute Auto 2.89 K/mm3 (0.9-3.2); Lymphocytes Percent Auto 41.4 % (18.3-44.2); Mean Corpuscular HGB Conc 33.3 g/dl (32-36); Mean Corpuscular Hemoglobin 28.7 pg (26-34); Mean Corpuscular Volume 86.4 fl (80-100); Mean Platelet Volume 9.4 fl (7.4-10.4); Monocytes Absolute Auto 0.5 K/mm3 (0.1-0.6); Monocytes Percent Auto 6.9 % (2.6-8.5); Neutrophils Absolute Auto 3.4 K/mm3 (1.3-6.7); Neutrophils Percent Auto 49.3 % (45.5-73.1); Platelet Count Result 277 k/mm3 (150-375); Red Blood Count 5.15 M/mm3 (4.2-5.4); Red Cell Distribution Width 12.3 % (11.5-14.5)
[2022-07-23 15:30] LABS: Alanine Aminotransferase 33 U/L (6-35); Albumin Level 5.1 g/dL (3.5-5.1); Alkaline Phosphatase 80 U/L (38-126); Anion Gap 7 mmol/L (8-16); Aspartate Amino Transferase 30 U/L (14-36); Bilirubin,Total 0.5 mg/dL (0.2-1.3); Blood Urea Nitrogen 14 mg/dL (7-17); Calcium 9.7 mg/dL (8.4-10.2); Carbon Dioxide 32 mmol/L (22-30); Chloride 102 mmol/L (98-107); Cholesterol 178 mg/dL (0-200); Estimated Glomerular Filt Rate > 60; Glucose 92 mg/dL (65-110); HDL Direct 46 mg/dL; Hemoglobin A1C 5.3 % (<5.7); Potassium 3.9 mmol/L (3.4-5.0); Sodium 141 mmol/L (137-145); Triglycerides 213 mg/dL (<150)
[2022-07-23 15:35] LABS: Bacteria Urine Trace /hpf; Squamous Epithelial Cell Urine Rare /hpf (Few); WBC Urine 0-3 /hpf
[2022-07-23 15:42] LABS: LDL Cholesterol Direct 62 mg/dL
[2022-07-23 15:45] LABS: Add Urine Microscopic? YES
[2022-07-23 16:02] LABS: Thyroid Stimulating Hormone 0.921 uIU/mL (0.465-4.680)
== END 2022-07-23 14:22 | disposition home or self-care (01) ==
LOC: ANHLAB 14:23
PROVIDERS: PCP Internal Medicine; Visit Provider Internal Medicine
DX: E78.2 Mixed hyperlipidemia (principal); I10 Essential (primary) hypertension; Z79.899 Other long term (current) drug therapy; R35.0 Frequency of micturition
CPT/HCPCS: 36415; 80053; 80061; 81001; 82248; 83036; 84439; 84443; 85025

== ENCOUNTER 2022-08-03 07:42 | Outpatient (CLI) | payer BC, SELFPAY ==
[2022-08-05 19:21] LABS: Creatinine, Random Urine 141 mg/dL (20-275); Total Protein/Creatinine Ratio 85 mg/g creat (24-184)
[2022-08-06 00:16] LABS: Albumin 4.7 g/dL (3.8-4.8); Alpha 1 Globulin 0.3 g/dL (0.2-0.3); Alpha 2 Globulin 0.8 g/dL (0.5-0.9); Beta 1 Globulin 0.6 g/dL (0.4-0.6); Gamma Globulin 1.4 g/dL (0.8-1.7); Protein, Total 8.2 g/dL (6.1-8.1)
== END 2022-08-03 07:43 | disposition home or self-care (01) ==
LOC: ANHLAB 07:43
PROVIDERS: PCP Internal Medicine; Visit Provider Internal Medicine
DX: R77.9 Abnormality of plasma protein, unspecified (principal)
CPT/HCPCS: 36415; 82570; 84155; 84156; 84165; 84166

== ENCOUNTER 2022-08-11 16:27 | Outpatient (CLI) | payer BC, SELFPAY ==
--- NOTE | ~2022-08-11 | MM_ITS ---
EXAMINATION: MM screening [facility] BI w gulshan HISTORY: Screening mammogram TECHNIQUE: Craniocaudal and mediolateral oblique 3-D tomosynthesis images were obtained and synthetic 2-D images were generated. CAD analysis was submitted and interpreted. COMPARISON: May 04, 2022, June 12, 2020, June 11, 2019 bilateral screening mammogram exa minations BREAST PARENCHYMAL COMPOSITION: The breasts are almost entirely fatty. FINDINGS: There is no evidence of suspicious mass, calcification, or architectural distortion to sugg est malignancy in either breast. There has been no suspicious interval change. IMPRESSION: 1. No mammographic evidence of malignancy. 2. Recommend routine screening mammography in one year. BI-RADS Category 1: Negative Reviewed, dictated and finalized at location A. ITION SERVICES AIDE
== END 2022-08-11 16:28 | disposition home or self-care (01) ==
LOC: ANHIMG 16:29
PROVIDERS: PCP Internal Medicine; Visit Provider Internal Medicine
DX: Z12.31 Encounter for screening mammogram for malignant neoplasm of breast (principal)
CPT/HCPCS: 77063; 77067

== ENCOUNTER 2022-08-13 06:45 | Outpatient (CLI) | payer BC, SELFPAY ==
--- NOTE | ~2022-08-13 | CT_ITS ---
Non-contrast CT scan of the Abdomen and Pelvis Clinical indication: Microscopic hematuria Technique: 2.5 mm axial scans were obtained through the abdomen and pelvis without intravenous or or al contrast. Dose reduction technique was used on this scan by utilizing automated exposure control a nd iterative reconstruction technique. The dose-length product (DLP) was 595.27 mGy-cm. COMPARISON: 04/26/2019 Findings: Images through the lung bases reveal no abnormalities. There is no evidence of renal or ureteral calculi. The kidneys and the ureters are nondilated. 8 mm p robable angiomyolipoma noted at the upper left renal pole. The liver, spleen, pancreas, and adrenals appear normal. Cholecystectomy clips noted. There is no aor tic aneurysm. There is no evidence of bowel obstruction. Images through the pelvis were performed. There is no evidence of ascites or lymphadenopathy. Urinary bladder unremarkable. Patient appears to be post hysterectomy. No pelvic mass seen. Impression: 8 mm angiomyolipoma at the upper left renal pole, unchanged. No other significant findings. Reviewed, dictated and finalized at location . MEDICATION Impression: 8 mm angiomyolipoma at the upper left renal pole, unchanged. No other significant findings.
== END 2022-08-13 06:46 | disposition home or self-care (01) ==
PROVIDERS: PCP Internal Medicine; Visit Provider Internal Medicine
DX: R31.29 Other microscopic hematuria (principal)
CPT/HCPCS: 74176

== ENCOUNTER 2022-12-09 16:53 | Outpatient (CLI) | payer BC, SELFPAY ==
[2022-12-09 17:59] LABS: Basophils Percent Auto 0.5 % (0.2-1.2); Eosinophils Absolute Auto 0.1 K/mm3 (0-0.3); Eosinophils Percent Auto 2.2 % (0-4.4); Hematocrit 44.3 % (37.0-47.0); Hemoglobin 14.5 g/dL (12.0-15.0); Immature Granulocyte Absolute 0.02 K/mm3 (0.00-0.031); Immature Granulocyte Percent A 0.3 % (0-0.5); Lymphocytes Absolute Auto 2.77 K/mm3 (0.9-3.2); Lymphocytes Percent Auto 42.9 % (18.3-44.2); Mean Corpuscular HGB Conc 32.7 g/dl (32-36); Mean Corpuscular Hemoglobin 28.3 pg (26-34); Mean Corpuscular Volume 86.5 fl (80-100); Mean Platelet Volume 9.9 fl (7.4-10.4); Monocytes Absolute Auto 0.5 K/mm3 (0.1-0.6); Neutrophils Absolute Auto 3.1 K/mm3 (1.3-6.7); Neutrophils Percent Auto 47.1 % (45.5-73.1); Platelet Count Result 309 k/mm3 (150-375); Red Blood Count 5.12 M/mm3 (4.2-5.4); Red Cell Distribution Width 12.7 % (11.5-14.5); White Blood Count 6.5 K/mm3 (4.5-10.0)
[2022-12-09 18:09] LABS: Alanine Aminotransferase 33 U/L (6-35); Albumin Level 5.1 g/dL (3.5-5.1); Alkaline Phosphatase 77 U/L (38-126); Anion Gap 7 mmol/L (8-16); Aspartate Amino Transferase 30 U/L (14-36); Bilirubin,Total 0.5 mg/dL (0.2-1.3); Blood Urea Nitrogen 13 mg/dL (7-17); Calcium 9.8 mg/dL (8.4-10.2); Carbon Dioxide 31 mmol/L (22-30); Chloride 103 mmol/L (98-107); Cholesterol 157 mg/dL (0-200); Estimated Glomerular Filt Rate > 60; Glucose 81 mg/dL (65-110); HDL Direct 47 mg/dL; Potassium 4.3 mmol/L (3.4-5.0); Sodium 141 mmol/L (137-145); Triglycerides 286 mg/dL (<150)
[2022-12-09 18:21] LABS: LDL Cholesterol Direct 59 mg/dL
== END 2022-12-09 16:54 | disposition home or self-care (01) ==
LOC: ANHLAB 16:54
PROVIDERS: PCP Internal Medicine; Visit Provider Internal Medicine
DX: E78.2 Mixed hyperlipidemia (principal); Z13.29 Encounter for screening for other suspected endocrine disorder; I10 Essential (primary) hypertension; Z79.899 Other long term (current) drug therapy
CPT/HCPCS: 36415; 80053; 80061; 84439; 84443; 85025

== ENCOUNTER 2023-01-09 16:15 | Emergency (ER) | payer BC, SELFPAY ==
--- NOTE | 2023-01-09 16:25 | PC.NURSE ---
Patient decided not to await to see the nurse or get vitals completed prior to leaving.
== END 2023-01-09 16:25 | disposition left against medical advice (07) ==
PROVIDERS: PCP Internal Medicine
DX: Z53.21 Procedure and treatment not carried out due to patient leaving prior to being seen by health care provider (principal)
CPT/HCPCS: 99199

== ENCOUNTER 2023-03-17 17:40 | Outpatient (CLI) | payer BC, SELFPAY ==
[2023-03-17 18:17] LABS: Basophils Absolute Auto 0.1 K/mm3 (0.0-0.1); Basophils Percent Auto 0.7 % (0.2-1.2); Eosinophils Absolute Auto 0.1 K/mm3 (0-0.3); Eosinophils Percent Auto 1.3 % (0-4.4); Hematocrit 43.8 % (37.0-47.0); Hemoglobin 14.3 g/dL (12.0-15.0); Immature Granulocyte Absolute 0.02 K/mm3 (0.00-0.031); Immature Granulocyte Percent A 0.3 % (0-0.5); Lymphocytes Absolute Auto 2.44 K/mm3 (0.9-3.2); Lymphocytes Percent Auto 34.8 % (18.3-44.2); Mean Corpuscular HGB Conc 32.6 g/dl (32-36); Mean Corpuscular Hemoglobin 28.1 pg (26-34); Mean Corpuscular Volume 86.1 fl (80-100); Mean Platelet Volume 9.9 fl (7.4-10.4); Monocytes Absolute Auto 0.5 K/mm3 (0.1-0.6); Monocytes Percent Auto 7.1 % (2.6-8.5); Neutrophils Absolute Auto 3.9 K/mm3 (1.3-6.7); Neutrophils Percent Auto 55.8 % (45.5-73.1); Platelet Count Result 268 k/mm3 (150-375); Red Blood Count 5.09 M/mm3 (4.2-5.4); Red Cell Distribution Width 12.3 % (11.5-14.5)
[2023-03-17 18:20] LABS: Appearance Urine Clear (Clear); Bacteria Urine None Seen /hpf; Bilirubin Urine Negative (Negative); Color Urine Yellow (Yellow); Glucose Urine UA Negative (Negative); Ketones Urine Negative (Negative); Leukocyte Esterase Ur Negative LEU/UL (Negative); Nitrate Urine Negative (Negative); Non Pathogenic Casts 0-2; Protein Urine Negative (Negative); RBC Urine 0-2 /hpf (0-2); Specific Grav Ur 1.014 (1.001-1.035); Squamous Epithelial Cell Urine None seen /hpf (Few); Urobilinogen Urine 0.2 mg/dL (<2.0); WBC Urine 0-5 /hpf; pH Urine 5.5 (5.0-9.0)
[2023-03-17 18:26] LABS: Alanine Aminotransferase 32 U/L (6-35); Albumin Level 4.9 g/dL (3.5-5.1); Alkaline Phosphatase 72 U/L (38-126); Anion Gap 9 mmol/L (8-16); Aspartate Amino Transferase 28 U/L (14-36); Bilirubin,Total 0.6 mg/dL (0.2-1.3); Blood Urea Nitrogen 14 mg/dL (7-17); Carbon Dioxide 27 mmol/L (22-30); Chloride 104 mmol/L (98-107); Cholesterol 154 mg/dL (0-200); Estimated Glomerular Filt Rate > 60; Glucose 92 mg/dL (65-110); HDL Direct 48 mg/dL; Potassium 4.1 mmol/L (3.4-5.0); Sodium 140 mmol/L (137-145); Triglycerides 187 mg/dL (<150)
[2023-03-17 18:37] LABS: LDL Cholesterol Direct 59 mg/dL
[2023-03-17 18:56] LABS: Thyroid Stimulating Hormone 0.956 uIU/mL (0.465-4.680)
[2023-03-17 19:16] LABS: Free T4 Free Thyroxine 1.02 ng/mL (0.78-2.19); Vitamin D 25 Hydroxy 89.8 ng/mL
[2023-03-23 08:59] LABS: Add Urine Microscopic? YES
== END 2023-03-17 17:41 | disposition home or self-care (01) ==
LOC: ANHLAB 17:42
PROVIDERS: PCP Internal Medicine; Visit Provider Internal Medicine
DX: E55.9 Vitamin D deficiency, unspecified (principal); E78.2 Mixed hyperlipidemia; I10 Essential (primary) hypertension; R31.29 Other microscopic hematuria; R79.9 Abnormal finding of blood chemistry, unspecified; Z79.899 Other long term (current) drug therapy
CPT/HCPCS: 36415; 80053; 80061; 81001; 81003; 82306; 84439; 84443; 85025

== ENCOUNTER 2023-04-29 16:45 | Outpatient (CLI) | payer BC, SELFPAY ==
[2023-04-29 17:06] LABS: Appearance Urine Clear (Clear); Bacteria Urine None Seen /hpf; Bilirubin Urine Negative (Negative); Blood Urine Negative (Negative); Color Urine Yellow (Yellow); Glucose Urine UA Negative (Negative); Ketones Urine Negative (Negative); Leukocyte Esterase Ur Trace LEU/UL (Negative); Nitrate Urine Negative (Negative); Non Pathogenic Casts 0-2; Protein Urine Negative (Negative); RBC Urine 0-2 /hpf (0-2); Specific Grav Ur 1.008 (1.001-1.035); Squamous Epithelial Cell Urine None seen /hpf (Few); Urobilinogen Urine 0.2 mg/dL (<2.0); WBC Urine 0-5 /hpf; pH Urine 6.5 (5.0-9.0)
[2023-04-29 17:10] LABS: Add Urine Microscopic? YES
== END 2023-04-29 16:46 | disposition home or self-care (01) ==
LOC: ANHLAB 16:46
PROVIDERS: PCP Internal Medicine; Visit Provider Internal Medicine
DX: R39.9 Unspecified symptoms and signs involving the genitourinary system (principal)
CPT/HCPCS: 81001

== ENCOUNTER 2023-08-17 17:20 | Outpatient (CLI) | payer BC, SELFPAY ==
[2023-08-17 20:56] LABS: Alanine Aminotransferase 40 U/L (6-35); Albumin Level 4.6 g/dL (3.5-5.1); Alkaline Phosphatase 68 U/L (38-126); Anion Gap 9 mmol/L (8-16); Aspartate Amino Transferase 34 U/L (14-36); Bilirubin,Total 0.4 mg/dL (0.2-1.3); Blood Urea Nitrogen 14 mg/dL (7-17); Calcium 10.2 mg/dL (8.4-10.2); Carbon Dioxide 26 mmol/L (22-30); Chloride 106 mmol/L (98-107); Cholesterol 143 mg/dL (0-200); Estimated Glomerular Filt Rate > 60; Glucose 87 mg/dL (65-110); HDL Direct 40 mg/dL; Potassium 4.3 mmol/L (3.4-5.0); Sodium 141 mmol/L (137-145); Triglycerides 181 mg/dL (<150)
[2023-08-17 21:07] LABS: LDL Cholesterol Direct 67 mg/dL
== END 2023-08-17 17:21 | disposition home or self-care (01) ==
LOC: ANHLAB 17:21
PROVIDERS: PCP Internal Medicine; Visit Provider Internal Medicine
DX: E78.5 Hyperlipidemia, unspecified (principal); I10 Essential (primary) hypertension
CPT/HCPCS: 36415; 80053; 80061

== ENCOUNTER 2023-10-25 16:00 | Outpatient (CLI) | payer BC, SELFPAY ==
--- NOTE | ~2023-10-25 | MM_ITS ---
EXAMINATION: MM screening [facility] BI w gulshan HISTORY: Screening mammogram TECHNIQUE: Craniocaudal and mediolateral oblique 3-D tomosynthesis images were obtained and synthetic 2-D images were generated. CAD analysis was submitted and interpreted. COMPARISON: 08/11/2022, 08/04/2021 bilateral screening mammogram examinations BREAST PARENCHYMAL COMPOSITION: There are scattered areas of fibroglandular density. FINDINGS: There is no evidence of suspicious mass, calcification, or architectural distortion to sugg est malignancy in either breast. There has been no suspicious interval change. IMPRESSION: 1. No mammographic evidence of malignancy. 2. Recommend routine screening mammography in one year. BI-RADS Category 1: Negative Reviewed, dictated and finalized at location A.
== END 2023-10-25 16:01 | disposition home or self-care (01) ==
PROVIDERS: PCP Internal Medicine; Visit Provider Obstetrics & Gynecology
DX: Z12.31 Encounter for screening mammogram for malignant neoplasm of breast (principal)
CPT/HCPCS: 77063; 77067

== ENCOUNTER 2024-01-25 16:09 | Outpatient (CLI) | payer BC, SELFPAY ==
[2024-01-25 17:03] LABS: Add Urine Microscopic? YES; Appearance Urine Cloudy (Clear); Bacteria Urine None Seen /hpf; Bilirubin Urine Negative (Negative); Blood Urine Negative (Negative); Color Urine Yellow (Yellow); Glucose Urine UA Negative (Negative); Ketones Urine Negative (Negative); Leukocyte Esterase Ur Negative LEU/UL (Negative); Nitrate Urine Negative (Negative); Non Pathogenic Casts 0-2; Protein Urine Negative (Negative); Specific Grav Ur 1.018 (1.001-1.035); Squamous Epithelial Cell Urine None Seen /hpf (Few); Urobilinogen Urine 0.2 mg/dL (<2.0); WBC Urine 0-5 /hpf (0-3)
[2024-01-25 17:08] LABS: Basophils Percent Auto 0.7 % (0.2-1.2); Eosinophils Absolute Auto 0.1 K/mm3 (0-0.3); Eosinophils Percent Auto 1.7 % (0-4.4); Hematocrit 45.8 % (37.0-47.0); Immature Granulocyte Absolute 0.02 K/mm3 (0.00-0.031); Immature Granulocyte Percent A 0.3 % (0-0.5); Lymphocytes Absolute Auto 2.49 K/mm3 (0.9-3.2); Lymphocytes Percent Auto 41.2 % (18.3-44.2); Mean Corpuscular HGB Conc 32.8 g/dl (32-36); Mean Corpuscular Hemoglobin 28.3 pg (26-34); Mean Corpuscular Volume 86.4 fl (80-100); Mean Platelet Volume 9.9 fl (7.4-10.4); Monocytes Absolute Auto 0.5 K/mm3 (0.1-0.6); Monocytes Percent Auto 7.9 % (2.6-8.5); Neutrophils Absolute Auto 2.9 K/mm3 (1.3-6.7); Neutrophils Percent Auto 48.2 % (45.5-73.1); Platelet Count Result 292 k/mm3 (150-375); Red Cell Distribution Width 12.7 % (11.5-14.5)
[2024-01-25 17:20] LABS: Alanine Aminotransferase 36 U/L (6-35); Albumin Level 4.8 g/dL (3.5-5.1); Alkaline Phosphatase 72 U/L (38-126); Anion Gap 10 mmol/L (4-12); Aspartate Amino Transferase 33 U/L (14-36); Bilirubin,Total 0.4 mg/dL (0.2-1.3); Blood Urea Nitrogen 13 mg/dL (7-17); Calcium 9.6 mg/dL (8.4-10.2); Carbon Dioxide 29 mmol/L (22-30); Chloride 102 mmol/L (98-107); Cholesterol 154 mg/dL (0-200); Estimated Glomerular Filt Rate > 60; Glucose 82 mg/dL (65-110); HDL Direct 41 mg/dL; Potassium 4.3 mmol/L (3.4-5.0); Sodium 141 mmol/L (137-145); Triglycerides 448 mg/dL (<150)
[2024-01-25 17:31] LABS: LDL Cholesterol Direct 55 mg/dL
[2024-01-25 17:42] LABS: Vitamin D 25 Hydroxy 67.6 ng/mL
[2024-01-25 22:20] LABS: Hemoglobin A1C 5.6 % (<5.7)
== END 2024-01-25 16:10 | disposition home or self-care (01) ==
LOC: ANHLAB 16:10
PROVIDERS: PCP Internal Medicine; Visit Provider Internal Medicine
DX: E78.5 Hyperlipidemia, unspecified (principal); I10 Essential (primary) hypertension; Z13.29 Encounter for screening for other suspected endocrine disorder; Z79.899 Other long term (current) drug therapy; E55.9 Vitamin D deficiency, unspecified; Z13.1 Encounter for screening for diabetes mellitus
CPT/HCPCS: 36415; 80053; 80061; 81001; 82306; 83036; 84439; 84443; 85025

== ENCOUNTER 2024-04-20 07:51 | Outpatient (CLI) | payer BC, SELFPAY ==
--- NOTE | ~2024-04-20 | CT_ITS ---
CT of the Abdomen and Pelvis: Indication: Abnormal findings in urinary Technique: 2.5 mm axial scans were obtained through the abdomen and pelvis prior to and following in travenous administration of 130 cc of Omnipaque 350. Dose reduction technique was used on this scan b y utilizing automated exposure control and iterative reconstruction technique. The dose-length produc t (DLP) was 2008.71 mGy-cm. COMPARISON: 08/13/2022 Findings: Scans through the lung bases are unremarkable. The liver, spleen, pancreas, adrenals and right kidney are within normal limits. Stable 8 mm left kandace al angiomyolipoma. Cholecystectomy clips are present. No evidence of aortic aneurysm. No lymphadenop athy. No bowel obstruction or bowel wall thickening. There is no evidence to suggest acute appendicitis. Images through the pelvis were performed. Urinary bladder unremarkable. No pelvic mass seen. No ascit es. Impression: No significant abnormality of the system identified. Stable 8 mm left renal angiomyolipoma. Reviewed, dictated and finalized at location . ON BROKER Impression: No significant abnormality of the system identified. Stable 8 mm left renal angiomyolipoma.
[2024-04-20 08:17] LABS: Estimated Glomerular Filt Rate > 60
== END 2024-04-20 07:52 | disposition home or self-care (01) ==
PROVIDERS: PCP Internal Medicine; Visit Provider Internal Medicine
DX: R82.998 Other abnormal findings in urine (principal)
CPT/HCPCS: 74178; Q9967

== ENCOUNTER 2024-08-28 16:59 | Outpatient (CLI) | payer BC, SELFPAY ==
[2024-08-28 17:53] LABS: Basophils Percent Auto 0.6 % (0.2-1.2); Eosinophils Absolute Auto 0.1 K/mm3 (0-0.3); Hematocrit 42.1 % (37.0-47.0); Hemoglobin 13.9 g/dL (12.0-15.0); Immature Granulocyte Absolute 0.01 K/mm3 (0.00-0.031); Immature Granulocyte Percent A 0.2 % (0-0.5); Lymphocytes Absolute Auto 2.52 K/mm3 (0.9-3.2); Lymphocytes Percent Auto 38.2 % (18.3-44.2); Mean Corpuscular Hemoglobin 28.4 pg (26-34); Mean Corpuscular Volume 86.1 fl (80-100); Mean Platelet Volume 10.2 fl (7.4-10.4); Monocytes Absolute Auto 0.5 K/mm3 (0.1-0.6); Monocytes Percent Auto 7.3 % (2.6-8.5); Neutrophils Absolute Auto 3.4 K/mm3 (1.3-6.7); Neutrophils Percent Auto 51.7 % (45.5-73.1); Platelet Count Result 274 k/mm3 (150-375); Red Blood Count 4.89 M/mm3 (4.2-5.4); Red Cell Distribution Width 12.7 % (11.5-14.5); White Blood Count 6.6 K/mm3 (4.5-10.0)
--- OUTSIDE RECORDS SUMMARY | 2024-08-28 18:04 | XMS_ITS | Clinical Summary ---
Author Organization [facility] Address [address] [place] [address] Care Team Providers Care Occupational Therapist Assistants Name Role Phone Yamil Hagan MD Primary Care Provider [phone] Yamil Hagan MD Unavailable [phone] Allergies Active Allergy Reactions Criticality Noted Date Comments Sulfa (Sulfonamide Antibiotics) Medications amLODIPine (NORVASC) 5 mg tablet take 1 tablet by oral route every day 0 0 6 Active warfarin (COUMADIN) 7.5 mg tablet take 1 tablet by oral route every day 0 0 6 Active simvastatin (ZOCOR) 20 mg tablet take 1 tablet by oral route every day in the evening 0 0 6 Active omega-3 fatty acids-fish oil (FISH OIL) 360-1,200 mg capsule 0 0 6 Active AMOXICILLIN 500 mg capsule 8 Active chlorhexidine (PERIDEX) 0.12 % solution 8 Active akzko-3b-atv-epa -fish oil-D3 (FISH OIL-VIT D3) 360 mg-1,200 mg -1,000 unit capsule Take 1 tablet by mouth. Active HYDROcodone-acet aminophen (NORCO) 5-325 mg per tabletIndication s:Pain hydrocodone 5 mg-acetaminophe n 325 mg tablet TK 1-2 TS PO Q 4-6 H PRF PAIN Active methylPREDNISolo ne (MEDROL DOSEPACK) 4 mg Dosepack 8 Active penicillin v potassium (VEETID) 500 mg tablet 8 Active PREVNAR 13, PF, 0.5 mL vaccine ADM 0.5ML IM UTD 0 8 Active cholecalciferol (VITAMIN D-3) 1,000 unit tablet Take 5,000 Units by mouth daily. Active cholecalciferol (VITAMIN D3) 1,000 unit capsule Vitamin D3 Active warfarin (COUMADIN) 5 mg tablet 8 Active raNITIdine (ZANTAC) 150 mg tablet Take 1 tablet (150 mg total) by mouth 2 (two) times a day. 60 tablet 2 8 Active fluticasone (FLONASE) 50 mcg/actuation nasal spray Administer 1 spray into each nostril daily. 16 g 2 8 Active mupirocin (BACTROBAN NASAL) 2 % nasal ointmentIndicati ons:Methicillin- Resistant S. Aureus Nasal Colonization Apply to each nostril 2 (two) times a day. 10 g 2 8 Active Active Problems Problem Noted Date Diagnosed Date Laryngopharyngeal reflux (LPR) 09/22/2017 Assessment & Plan (09/22/2017 2:55 PM CDT): Patient with fluctuating hoarseness, increased mucus production, globus sensation; all symptoms worse with laying down. Patient was provided with educational material regarding reflux precautions. Patient was instructed to refrain from eating a meal approximately 3 hours prior to bedtime. Patient was instructed to elevate the head of the bed by approximately 8 inches. Patient was to refrain from consuming spicy greasy fatty foods, dairy products, and excessive caffeine use. Patient was also advised to increase water consumption. Patient was also instructed on weight reduction and exercise regimen. Patient was also instructed on the importance of compliance with medications. Start Zantac 150mg BID Follow up in 3 months; if no improvement we may further investigate with swallow study. Allergic rhinitis 09/22/2017 Assessment & Plan (09/22/2017 2:54 PM CDT): Patient with continued rhinorrhea and post nasal drip over the last month. Symptoms fluctuate intensity from day to day. Patient denies any history of allergic triggers; and can not pinpoint a seasonal correlation. Start on Saline irrigation, flonase, and zyrtec. May benefit from RAST testing if symptoms do not improve. Follow up in 3 months Nasal sore 09/22/2017 Assessment & Plan (09/22/2017 3:00 PM CDT): Patient notes a nasal sore to her right nare, that she noticed approximately 1 week ago. Area with some erythema surrounding it. Bactroban ointment to sore. 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 Gender Identity Not on file Sexual Orientation Not on file Obstetrics History Last Filed Vital Signs Vital Sign Reading Time Taken Comments Blood Pressure 128/84 09/15/2017 1:37 PM CDT Pulse 100 09/15/2017 1:37 PM CDT Temperature - - Respiratory Rate 20 09/15/2017 1:37 PM CDT Oxygen Saturation - - Inhaled Oxygen Concentration - - Weight 90.5 kg (199 lb 9.6 oz) 09/15/2017 1:37 P M CDT Height 160 cm (5' 3 ) 09/15/2017 1:37 PM CDT Body Mass Index 35.36 09/15/2017 1:37 PM CDT Plan of Treatment Not on file Insurance [facility] CHOICE PLUS Care Teams Occupational Therapist Assistants Relationship Specialty Start Date End Date Yamil Hagan MD [address] [place] [address] PCP - General 02/29/20 Yamil Hagan MD [address] [place] [address] 02/29/20
--- OUTSIDE RECORDS SUMMARY | 2024-08-28 18:04 | XMS_ITS | Referral Summary ---
Author Organization [facility] Address [address] [place] [address] Care Team Providers Care Debt Recovery Officer Name Role Phone Yamil Hagan MD Primary Care Provider [phone] Yamil Hagan MD Unavailable [phone] Allergies Active Allergy Reactions Criticality Noted Date [...] chlorhexidine (PERIDEX) 0.12 % solution 8 Active aklkj-4d-xbe-epa -fish oil-D3 (FISH OIL-VIT D3) 360 mg-1,200 [...] erythema surrounding it. Bactroban ointment to sore. 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
--- OUTSIDE RECORDS SUMMARY | 2024-08-28 18:04 | XMS_ITS | Clinical Summary ---
Author Organization [facility] Address [address] [facility] [place] [address] Care Team Providers Care Supervisor Tank Cleaning Name Role Phone James Casanova MD Unavailable [phone] Yamil Hagan MD Primary Care Provider [phone] [facility],non-owned Affiliates and Associated Physician Practices is amultiple site organization consisting of ambulatory clinics and hospital sitesin [place], [place], [place] and [place]. This disclosure is being madepursuant to the Care Everywhere program and may not contain all information available regarding this patient. Last updated 18.[facility] Allergies Active Allergy Reactions Criticality Noted Date Comments Sulfa Drugs Anaphylaxis,Rash,Swelling High 1 Throat swelling Medications * Be aware that medications may not be up to date on this document. Alwaysverify current medications with the patient. Medication Sig Dispensed Refills Start Date End Date Status warfarin (COUMADIN) 6 MG tablet Take 7 mg by mouth once daily Active simvastatin (ZOCOR) 20 MG tablet Take 20 mg by mouth at bedtime. Active Fish Oil-Cholecalciferol (FISH OIL + D3) 2247-2323 MG-UNIT CAPS Take 1 Tab by mouth once daily. 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 Social History Tobacco Use Types Packs/Day Years Used Date Smoking Tobacco: Never Smokeless Tobacco: Never Alcohol Use Standard Drinks/Week Comments No 0 (1 standard drink = 0.6 oz pur e alcohol) Sex and Gender Information Value Date Recorded Sex Assigned at Not on file Gender Identity Not on file Sexual Orientation Not on file Last Filed Vital Signs Vital Sign Reading Time Taken Comments Blood Pressure 112/64 11/29/2017 12:01 PM CDT Pulse 88 11/29/2017 12:01 PM CDT Temperature 36.9 C (98.5 F) 11/29/2017 12:01 PM CDT Respiratory Rate 16 11/29/2017 12:01 PM CDT Oxygen Saturation 96% 11/29/2017 12:01 PM CDT Inhaled Oxygen Concentration - - Weight 86.2 kg (190 lb) 11/29/2017 12:01 PM CDT Height 162.6 cm (5' 4 ) 11/29/2017 12:01 PM CDT Body Mass Index 32.61 11/29/2017 12:01 PM CDT Plan of Treatment Health Maintenance Due Date Last Done Comments COLOGUARD (AGES 45-75) - COL ON CA SCREENING 1970 COLON MONITORING 1970 COLONOSCOPY - COLON CA SCREENING 1970 CT COLONOGRAPHY - COLON CA SCREENING 1970 Colorectal Cancer Screening 1970 FIT - COLON CA SCREENING 1970 FLEX SIG - COLON CA SCREENING 1970 MAMMOGRAM 1970 PAP SMEAR 1970 HIV SCREENING 1985 HEPATITIS C SCREENING 12/26/1988 DTAP/TDAP/TD VACCINES (1 - Tdap) 1989 HEPATITIS B VACCINE (1 of 3 - 19+ 3-dose series) 1989 SCREENING FOR DIABETES 11/29/2017 3, 09/18/2012 PNEUMOCOCCAL VACCINE 50+ (1 of 1 - PCV) 2020 ZOSTER VACCINE (1 of 2) 2020 COVID-19 VACCINE (1 - 2023-2 5 season) 2024 INFLUENZA VACCINE (#1) 2024 DEPRESSION SCREENING 06/13/2024 HIB VACCINE Aged Out No longer eligi ble based on patient's age to complete this topic HPV VACCINE Aged Out No longer eligi ble based on patient's age to complete this topic MENINGOCOCCAL (Group B) VACCINE SHARED DECISION-MAKING Aged Out No longer eligible based on patient's age to complete this topic MENINGOCOCCAL GROUPS A/C/Y/W VACCINE Aged Out No longer eligible b ased on patient's age to complete this topic PNEUMOCOCCAL VACCINE Aged Out No long er eligible based on patient's age to complete this topic Procedures Procedure Name Priority Date/Time Associated Diagnosis Comments COMPREHENSIVE METABOLIC PANEL AM Draw 09/22/2012 3:26 AM CDT from Last 3 Months or Most Recently Relevant to Health Maintenance Results * (ABNORMAL) COMPREHENSIVE METABOLIC PANEL (09/22/2012 3:26 AM CDT) [facility] Signature Glucose 100 74 - 106 mg/dL 09/22/2012 5:11 AM CDT [facility] Sodium 140 136 - 145 mmol/L 09/22/2012 5:11 AM CDT [facility] Potassium 4.0 3.5 - 5.1 mmol/L 09/22/2012 5:11 AM CDT [facility] Chloride 108(H) 98 - 107 mmol/L 09/22/2012 5:11 AM CDT [facility] CO2 25 22 - 31 mmol/L 09/22/2012 5:11 AM CDT [facility] Calcium 8.5 8.5 - 10.1 mg/dL 09/22/2012 5:11 AM CDT [facility] Anion Gap 7 5 - 15 mmol/L 09/22/2012 5:11 AM CDT [facility] BUN 5(L) 7 - 21 mg/dL 09/22/2012 5:11 AM CDT [facility] Creatinine 0.59 0.50 - 1.30 mg/dL 09/22/2012 5:11 AM CDT [facility] eGFR by MDRD >60 >60 ml/min/1.7 3m2 09/22/2012 5:11 AM CDT [facility] eGFR by MDRD >60 >60 ml/min/1.7 3m2 09/22/2012 5:11 AM CDT [facility] Alkaline Phosphatase 36(L) 38 - 126 U/L 09/22/2012 5:11 AM CDT [facility] ALT 65 12 - 78 U/L 09/22/2012 5:11 AM CDT [facility] AST 26 5 - 40 U/L 09/22/2012 5:11 AM CDT [facility] Protein Total 6.2(L) 6.4 - 8.2 gm/dL 09/22/2012 5:11 AM CDT [facility] Albumin 2.9(L) 3.4 - 5.0 gm/dL 09/22/2012 5:11 AM CDT [facility] Bilirubin Total 0.5 0.2 - 1.0 mg/dL 09/22/2012 5:11 AM CDT [facility] Blood specimen (specimen) BLOOD SPECIMEN / Unknown 09/22/2012 3:26 AM CDT 09/22/2012 4:38 AM CDT Michael Prince MD LAB - CHEMISTRY PEDRO ROJAS [facility] Organization Address City/State/[facility] Co de Phone Number [facility] [address] [place] [address] from Last 3 Months or Most Recently Relevant to Health Maintenance Care Teams Supervisor Tank Cleaning Relationship Specialty Start Date End Date Yamil Hagan MD [address] [place] [address] PCP - General Internal Medicine 09/18/12 James Casanova MD Oncology 09/08/12
--- OUTSIDE RECORDS SUMMARY | 2024-08-28 18:04 | XMS_ITS | Encounter Summary ---
Author Organization [facility] Address [address] [facility] [place] [address] Care Team Providers Care Press And Blow Machine Tender Name Role Phone James Casanova MD Unavailable Yamil Hagan MD Primary Care Provider Encounter Details Date Type Department Care Team (Late st Contact Info) Description 10/05/2010 [facility] Outpatient Visit [facility] [address] [place] [address] Wagner Payton MD [facility] [place], [place] [id number] Social History Tobacco Use Types Packs/Day Years Used Date Smoking Tobacco: Never Assessed Sex and Gender Information Value Date Recorded Sex Assigned at Not on file Gender Identity Not on file Sexual Orientation Not on file documented as of this encounter Plan of Treatment Not on file documented as of this encounter Visit Diagnoses Not on filedocumented in this encounter Care Teams Press And Blow Machine Tender Relationship Specialty Start Date End Date Yamil Hagan MD [address] [place] [address] PCP - General Internal Medicine 09/18/12 James Casanova MD Oncology 09/08/12 documented as of this encounter
[2024-08-28 18:15] LABS: Alanine Aminotransferase 44 U/L (6-35); Albumin Level 4.9 g/dL (3.5-5.1); Alkaline Phosphatase 72 U/L (38-126); Anion Gap 12 mmol/L (4-12); Aspartate Amino Transferase 32 U/L (14-36); Bilirubin,Total 0.5 mg/dL (0.2-1.3); Blood Urea Nitrogen 16 mg/dL (7-17); Carbon Dioxide 27 mmol/L (22-30); Chloride 102 mmol/L (98-107); Cholesterol 134 mg/dL (0-200); Estimated Glomerular Filt Rate > 60; Glucose 93 mg/dL (65-110); HDL Direct 45 mg/dL; Potassium 4.1 mmol/L (3.4-5.0); Sodium 141 mmol/L (137-145); Triglycerides 225 mg/dL (<150)
[2024-08-28 18:16] LABS: Hemoglobin A1C 5.5 % (<5.7)
[2024-08-28 18:26] LABS: LDL Cholesterol Direct 46 mg/dL
[2024-08-28 18:41] LABS: Free T4 Free Thyroxine 1.06 ng/dL (0.78-2.19)
== END 2024-08-28 17:00 | disposition home or self-care (01) ==
LOC: ANHLAB 17:00
PROVIDERS: PCP Internal Medicine; Visit Provider Internal Medicine
DX: E78.5 Hyperlipidemia, unspecified (principal); I10 Essential (primary) hypertension; Z79.899 Other long term (current) drug therapy; Z13.1 Encounter for screening for diabetes mellitus; Z13.29 Encounter for screening for other suspected endocrine disorder
CPT/HCPCS: 36415; 80053; 80061; 82172; 83036; 84439; 84443; 85025

== ENCOUNTER 2024-10-25 15:35 | Outpatient (CLI) | payer BC, SELFPAY ==
--- NOTE | ~2024-10-25 | MM_ITS ---
EXAMINATION: MM screening benson BI w gulshan HISTORY: Screening TECHNIQUE: Craniocaudal and mediolateral oblique 3-D tomosynthesis images were obtained and synthetic 2-D images were generated. CAD analysis was submitted and interpreted. COMPARISON: Comparison to multiple prior studies sequentially, with oldest reviewed study dated 05/14. BREAST PARENCHYMAL COMPOSITION: Not Dense: The breasts are almost entirely fatty. FINDINGS: There is no evidence of suspicious mass, calcification, or architectural distortion to sugg est malignancy in either breast. There has been no suspicious interval change. IMPRESSION: 1. No mammographic evidence of malignancy. 2. Recommend routine screening mammography in one year. BI-RADS Category 1: Negative Reviewed, dictated and finalized at location A.
--- OUTSIDE RECORDS SUMMARY | 2024-10-25 16:00 | XMS_ITS | Clinical Summary ---
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
--- OUTSIDE RECORDS SUMMARY | 2024-10-25 16:00 | XMS_ITS | Encounter Summary ---
Author Organization [facility] Address [address] [place] [address] Care Team Providers Care Edge Trimming Machine Operator Name Role Phone James Casanova MD Unavailable [phone] Yamil Hagan MD Primary Care Provider [phone] Encounter Details Date Type Department Care Team (Late st Contact Info) Description 10/05/2010 [facility] Outpatient Visit [facility] [address] [place] [address] Wagner Payton MD 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
--- OUTSIDE RECORDS SUMMARY | 2024-10-25 16:00 | XMS_ITS | Clinical Summary ---
Author Organization [facility] Address [address] [facility] [place] [address] Care Team Providers Care Safety Lamp Keeper Name Role Phone Cuauhtemoc Casaonva MD Unavailable [phone] Yamil Hagan MD Primary Care Provider [phone] Source Comments [facility],non-owned Affiliates and Associated Physician Practices is amultiple site organization consisting of ambulatory clinics and hospital sitesin [place], [place], [place] and [place]. This disclosure is being madepursuant to the Care Everywhere program and may not contain all information available regarding this patient. Last updated 18.[facility] Allergies Active Allergy Reactions Criticality Noted Date Comments Sulfa Drugs Anaphylaxis,Rash,Swelling High 1 Throat swelling Medications * Be aware that medications may not be up to date on this document. Alwaysverify current medications with the patient. warfarin (COUMADIN) 6 MG tablet Take 7 mg by mouth once daily Active simvastatin (ZOCOR) 20 MG tablet Take 20 mg by mouth at bedtime. 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 Gender Identity Not on file Sexual Orientation [...] - COLON CA SCREENING 1970 MAMMOGRAM 1970 HIV SCREENING 1985 HEPATITIS C SCREENING 12/26/1988 DTAP/TDAP/TD VACCINES (1 - Tdap) 1989 HEPATITIS B VACCINE (1 of 3 - 19+ 3-dose series) 1989 SCREENING FOR DIABETES 11/29/2017 3, 09/18/2012 PNEUMOCOCCAL VACCINE 50+ (1 of 1 - PCV) 2020 ZOSTER VACCINE (1 of 2) 2020 COVID-19 VACCINE (1 - 2023-2 5 season) 2024 DEPRESSION SCREENING 06/13/2024 INFLUENZA VACCINE (Season Ended) 2025 HIB VACCINE Aged Out No longer eligi [...] COMPREHENSIVE METABOLIC PANEL (09/22/2012 3:26 AM CDT) Glucose 100 74 - 106 mg/dL 09/22/2012 [...] CDT Michael Prince MD LAB - CHEMISTRY ORDERABLES Final Result [facility] [address] [place] [address] from Last 3 Months or Most Recently Relevant to Health Maintenance Insurance [facility] Care Teams Safety Lamp Keeper Relationship Specialty Start Date End Date Yamil Hagan MD [address] [place] [address] PCP - General Internal Medicine 09/18/12 Cuauhtemoc Casanova MD Oncology 09/08/12
--- OUTSIDE RECORDS SUMMARY | 2024-10-25 16:00 | XMS_ITS | Continuity of Care Document ---
Author Organization [facility] Address [address] [place] [address] [address] [place] [address] Phone Care Team Providers Care Machine Repair Person Name Role Phone Gama OD, Wes Unavailable Unavailable Procedures Procedure Date Eye Exam & Treatment Refraction Eye Exam & Treatment Refraction Visual Field Examination-Professional Se Visual Field Examination(s) No Charge Contact Lens Check Eye Exam & Treatment Refraction Office/outpatient Visit, Est Advance Directives Directive Yes / No Effective Date File Name No Information Encounters Encounter Description Practice Location Reason(s) For Visit Diagnoses Date Provider Providers Copied on Encounter [facility], [address] [place] [address] [address], [place], [place], [id number], [place] tel:[phone] [facility] [place] No Information Sep- 3-201 0 Gama OD Wes. [address] [place] , [address], [place], [place], [place], [place]. tel:[phone] [facility], [address] [place] [address] [address], [place], [place], [id number], [place] tel:[phone] [facility] No Information Aug-0 7-200 9 Gama OD Wes. [address] , [address], [place], [address], [place]. tel:[phone] [facility], [address] [place] [address] [address], [place], [place], [id number], [place] tel:[phone] [facility] No Information Sep-2 8-200 7 Kacy Dc. [address] [place], [place] [address] , [address], [place], [place], [place], . tel:[phone] Referring Provider: [facility]ao Denny, [facility] [address], [place], [place], [place]. tel:[phone] [facility], [address] [place] [address] [address], [place], [place], [id number], tel:[phone] [facility] [place] No Information Sep-2 6-200 7 Kacy Dc. [address] [place], [place] [address]ate Center , [address], [place], [place], [place], . tel:[phone] Referring Provider: Dao Denny, [address] [place], [place] [address], [place], [place]. tel:[phone] [facility], [address] [place] [address] [address], [place], [place], [id number], [place] tel:[phone] [facility] [place] No Information Dec-1 1-200 7 Gama OD Wes. [address] [place], [place] [address]ate Center , [address], [place], [place], [place], [place]. tel:[phone] [facility], [address] [place] [address] [address], [place], [place], [id number], [place] tel:[phone] [facility] No Information Haja-2 0-200 7 Gama OD Wes. [address] [place], [place] [address]ate Center , [address], [place], [place], [place], [place]. tel:[phone] Office/outpat ient Visit, Est [facility], [address] [place] [address] [address], [place], [place], [id number], [place] tel:[phone] [facility] [place] No Information Jul- 9-200 7 Kacy Dc. [address] [place], [place] [address]ate [address] , [address], [place], [address], [place]. tel:[phone] Family History Family Member Type Diagnosis Age At Onset No Information Payers Payer name Insurance type Covered green party ID Authorekaterina alvarez(s) [employer] Plan [id number] Social History Type Description Quantity Date Captured Comments Sex Female Smoking Status No Information Chief Complaint And Reason For Visit No Information Reason For Referral Reason For Referral No Information History Of Present Illness Encounter Date Complaint History Of Prese nt Illness No Information Functional Status Date Functional Assessmen t No Information Instructions Date Instruction Additional Infor mation No Information Assessments Type Assessment Date No Information Patient Care Teams Name Effective Dates (start - stop) Status Members No Information
--- OUTSIDE RECORDS SUMMARY | 2024-10-25 16:00 | XMS_ITS | Referral Summary ---
Author Organization 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
== END 2024-10-25 15:36 | disposition home or self-care (01) ==
LOC: ANHIMG 15:58
PROVIDERS: PCP Internal Medicine; Visit Provider Obstetrics & Gynecology
DX: Z12.31 Encounter for screening mammogram for malignant neoplasm of breast (principal)
CPT/HCPCS: 77063; 77067

== ENCOUNTER 2025-03-08 16:54 | Outpatient (CLI) | payer BC, SELFPAY ==
--- OUTSIDE RECORDS SUMMARY | 2025-03-08 16:57 | XMS_ITS | Clinical Summary ---
Author Organization [facility] [email or web address] Address [address] [place] [address] Care Team Providers Care Maintenance Planning Clerk Name Role Phone Cuauhtemoc Casanova MD Unavailable [phone] Yamil Hagan MD Primary Care Provider [phone] Source Comments [facility],non-owned Affiliates and Associated Physician Practices is amultiple site organization consisting of ambulatory clinics and hospital sitesin [place], [place], [place] and [place]. This disclosure is being madepursuant to the Care Everywhere program and may not contain all information available regarding this patient. Last updated 18.[facility] [email or web address] Allergies Active Allergy Reactions Criticality Noted Date [...] Fish Oil-Cholecalcife rol (FISH OIL + D3) 6179-4068 MG-UNIT CAPS Take 1 Tab by mouth [...] on file Legal Sex Female 11:36 AM TYPIST Gender Identity Not on file Sexual Orientation [...] 12:01 PM CDT Height 162.6 cm (5' 4) 11/29/2017 12:01 PM CDT Body Mass Index [...] 2020 ZOSTER VACCINE (1 of 2) 2020 DEPRESSION SCREENING 06/13/2024 COVID-19 VACCINE (1 - 2023-2 5 season) 2025 INFLUENZA VACCINE (#1) 2025 HIB VACCINE Aged Out No longer [...] - CHEMISTRY ORDERABLES Final Result [facility] [address] [place] [address] from Last 3 Months or Most Recently Relevant to Health Maintenance Insurance [facility] Care Teams Maintenance Planning Clerk Relationship Specialty Start Date End Date Yamil Hagan MD [address] [place] [address] PCP - General Internal Medicine 09/18/12 Cuauhtemoc Casanova MD Oncology 09/08/12
--- OUTSIDE RECORDS SUMMARY | 2025-03-08 16:58 | XMS_ITS | Clinical Summary ---
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
[2025-03-08 17:22] LABS: Add Urine Microscopic? YES; Appearance Urine Clear (Clear); Glucose Urine UA Negative (Negative); Leukocyte Esterase Ur Negative LEU/UL (Negative); Nitrate Urine Negative (Negative); Non Pathogenic Casts 0-2; Specific Grav Ur 1.020 (1.001-1.035)
[2025-03-08 17:30] LABS: Alanine Aminotransferase 49 U/L (6-35); Albumin Level 4.5 g/dL (3.5-5.1); Alkaline Phosphatase 65 U/L (38-126); Anion Gap 9 mmol/L (4-12); Aspartate Amino Transferase 40 U/L (14-36); Bilirubin,Total 0.5 mg/dL (0.2-1.3); Blood Urea Nitrogen 15 mg/dL (7-17); Calcium 9.5 mg/dL (8.4-10.2); Carbon Dioxide 27 mmol/L (22-30); Chloride 103 mmol/L (98-107); Cholesterol 158 mg/dL (0-200); Estimated Glomerular Filt Rate > 60; Glucose 143 mg/dL (65-110); HDL Direct 39 mg/dL; Potassium 3.9 mmol/L (3.4-5.0); Sodium 139 mmol/L (137-145); Total Protein 7.8 g/dL (6.3-8.2)
[2025-03-08 17:32] LABS: Hemoglobin A1C 5.6 % (<5.7)
[2025-03-08 17:46] LABS: Free T4 Free Thyroxine 0.87 ng/dL (0.78-2.19)
[2025-03-08 17:59] LABS: Thyroid Stimulating Hormone 1.340 uIU/mL (0.465-4.680)
[2025-03-08 19:25] LABS: Triglycerides 579 mg/dL (<150)
== END 2025-03-08 16:55 | disposition home or self-care (01) ==
LOC: ANHLAB 16:56
PROVIDERS: PCP Internal Medicine; Visit Provider Internal Medicine
DX: Z13.1 Encounter for screening for diabetes mellitus (principal); Z13.29 Encounter for screening for other suspected endocrine disorder; E78.2 Mixed hyperlipidemia; I10 Essential (primary) hypertension; E55.9 Vitamin D deficiency, unspecified; Z79.899 Other long term (current) drug therapy
CPT/HCPCS: 36415; 80053; 80061; 81001; 82306; 83036; 84439; 84443

== ENCOUNTER 2025-04-26 07:41 | Outpatient (CLI) | payer BC, SELFPAY ==
--- NOTE | ~2025-04-26 | XR_ITS ---
EXAMINATION: XR hip BI 2V w AP pelvis, 04/26/2025 7:47 TAX EXAMINER HISTORY: M25.559 - Pain in unspecified hip COMPARISON: No comparisons available. Findings: No acute fracture or malalignment. No significant degenerative changes. Soft tissues unremarkable. Impression: No acute fracture or malalignment. Reviewed, dictated and finalized at location P. EXAMINER Impression: No acute fracture or malalignment.
--- NOTE | ~2025-04-26 | US_ITS ---
ULTRASOUND ABDOMEN LIMITED (RIGHT UPPER QUADRANT) Clinical History: R79.89 - Other specified abnormal findings of blood chemi... Comparison: CT abdomen pelvis 04/20/2024 Technique: Right upper quadrant sonography Findings: Liver: Enlarged. Echogenic. No intrahepatic biliary ductal dilatation. Normal hepatopedal flow main portal vein. Common Duct: 9 mm after cholecystectomy. Gallbladder: Removed. Pancreas: Unremarkable. IMPRESSION: 1. Hepatomegaly, with steatosis and/or hepatocellular disease. Reviewed, dictated and finalized at location R. GENCY CARE ATTENDANT
--- NOTE | ~2025-04-26 | XR_ITS ---
XR lumbar spine min 4V Indication: M25.559 - Pain in unspecified hip Comparison: None Findings: The vertebral heights are intact. No fracture or subluxation. The disc heights are intact. Soft tissues unremarkable Impression: No acute abnormality. Reviewed, dictated and finalized at location P. KET INSPECTOR Impression: No acute abnormality.
== END 2025-04-26 07:42 | disposition home or self-care (01) ==
LOC: MICIMG 07:42
PROVIDERS: PCP Internal Medicine; Visit Provider Internal Medicine
DX: M25.551 Pain in right hip (principal); M25.552 Pain in left hip; M54.9 Dorsalgia, unspecified; R79.89 Other specified abnormal findings of blood chemistry; K76.0 Fatty (change of) liver, not elsewhere classified
CPT/HCPCS: 72110; 73521; 76705